=== PATIENT | male | born 1950 ===

== ENCOUNTER 2021-03-27 12:40 | Inpatient (IN) | payer MEDICARE, SELFPAY ==
[2021-03-27] VITALS (19 sets, daily range): BP systolic 139–212; BP diastolic 69–93; PULSE 60–94; RESP 15–23; TEMP 36.2–37.3; O2SAT 92–99; BMI 30.8
--- NOTE | 2021-03-27 12:41 | DI.RAD.S_ITS ---
P in ROCEDURE: XR ANKLE LT MIN 3V INDICATIONS: ankle fracture TECHNIQUE: 3 views of the ankle were acquired. COMPARISON: [facility] [place], CR, XR ANKLE 3+ VIEWS BILATERAL, 12/25/2018, 10:42. FINDINGS: Bones: There is a moderately displaced fracture seen involving the distal fibula, which is seen at and below the level of the syndesmosis. There is lateral subluxation of the talus in relation to the distal tibia. No definite medial malleolar fracture is seen. No definite posterior malleolar fracture can be seen. The overlying casting material limits evaluation of fine detail. Age-appropriate bony degenerative changes are seen. Soft tissues: No tibiotalar joint effusion. Achilles tendon appears normal. IMPRESSION: Moderately displaced distal fibular fracture, with lateral subluxation of the talus in relation to the distal tibia. If it would be helpful for clinical management decision making, please consider a dedicated ankle CT for further evaluation. Dictated by: Johan Barraza M.D. on 03/27/2021 at 12:39 Approved by: Johan Barraza M.D. on 03/27/2021 at 12:40
--- NOTE | 2021-03-27 12:47 | ED_ITS ---
HPI - Fall General Chief Complaint: Fall Stated Complaint: Fall last night,fracture left leg,from [facility] Time Seen by Provider: 03/27/21 12:42 Source: patient, family and EMS Mode of arrival: EMS History of Present Illness HPI Narrative: Patient transferred here from Monday. Sustained a left ankle injury fracture dislocation yesterday. Treated in their emergency department with reduction of the ankle. Is in a splint at this time. Patient has had prophylaxis medications including Ativan for preventing alcohol withdrawal. Patient denies any hallucinations seizures altered mental status. And no ports from Dr. Lagunas who saw patient in the department yesterday. I spoke to him by phone. Dr. [facility] was contacted last night. She wanted patient brought through emergency department 1st. Patient states he tripped off a step yesterday at home. Denies any head injury or any other injuries. Labs and COVID swab completed last night. MD complaint: fall Related Data Home Medications Medication Instructions Recorded Confirmed losartan 50 mg PO QDAY #0 02/16/17 03/28/21 metoprolol succinate 50 mg PO QDAY #0 02/16/17 03/28/21 omeprazole 40 mg PO QDAY #0 02/16/17 03/28/21 pravastatin 10 mg PO HS #0 02/16/17 03/28/21 cholecalciferol (vitamin D3) PO 12/24/18 05/07/20 Resprioncs Dreamstation CPAP #1 ea 03/28/19 03/28/21 lorazepam 0.5 mg PO TID PRN 03/28/21 03/28/21 Allergies Allergy/AdvReac Type Severity Reaction Status Date / Time No Known Drug Allergies Allergy Verified 03/27/21 12:42 Review of Systems Review of Systems Narrative: GENERAL: Denies chills, fatigue, malaise, fever, sweats. HEENT: Denies sinus pain, ear pain, sore throat RESPIRATORY: Denies dyspnea, cough CARDIOVASCULAR: Denies chest pain, palpitations GASTROINTESTINAL: Denies nausea, vomiting, abdominal pain : Denies dysuria, frequency, hematuria MUSCULOSKELETAL: Complains muscle or bony pain SKIN: Denies rash, skin lesions NEUROLOGIC: Denies weakness, numbness ROS Unobtainable: All systems reviewed & are unremarkable except as noted in HPI and below Patient History Medical History Alcohol abuse Anxiety associated with depression Aspiration pneumonia Depression Excessive daytime sleepiness GERD (gastroesophageal reflux disease) Hyperlipidemia Hypertension Insomnia Obesity (BMI 30-39.9) Obstructive sleep apnea of adult Snoring Traumatic head injury less than 3 months ago Surgical History (Updated 03/28/21 @ 04:15 by KADE VenturaELLEN) History of open reduction and internal fixation (ORIF) procedure Family History (Updated 03/28/21 @ 04:16 by KADE VenturaELLEN) Father Heart attack Mother Diabetes mellitus Alzheimer's dementia Brother Heart disease Social History marital status: details: to [place], lives in [place] household members: spouse lives independently: Yes caregiver/support person: Yes (son Gurjit here from [place] for support) housing: house Smoking Status: Former smoker alcohol intake: current substance use type: does not use Smoking Status: Former smoker alcohol intake frequency: 3 or more drinks per day Alcohol type: wine Substance Use Type: does not use Exam Narrative Exam Narrative: GENERAL: in no distress, not toxic not dyspneic HEAD: Normocephalic. EYES: Pupils equal round No scleral icterus. No injection no discharge ENT: Mucous membranes moist. NECK: Trachea midline. CARDIOVASCULAR: Regular rate and rhythm without murmurs RESPIRATORY: Clear to auscultation. Breath sounds equal bilaterally. No wheezes, rales, or rhonchi. GASTROINTESTINAL: Abdomen soft, non-tender EXTREMITIES: Patient left lower extremity in Orthoglass splint. Foot warm soft and pink. Wiggles toes. Light touch intact to toes. BACK: No flank tenderness. NEURO: AOx4. SKIN: Warm and dry PSYCH: Not anxious, is cooperative Initial Vital Signs Initial Vital Signs: Vital Signs Temperature 97.9 F 03/27/21 12:40 Pulse Rate 68 03/27/21 12:40 Respiratory Rate 15 03/27/21 12:40 Blood Pressure 212/93 H 03/27/21 12:40 Pulse Oximetry 94 03/27/21 12:40 Course Course Course Narrative: No new issues during course of stay Decision to Admit Date: 03/27/21 Decision to Admit time: 14:04 Orders Ordered: Acetaminophen (Acetaminophen 325 Mg Tablet) 650 mg PO TID [facility] Last Admin: 03/28/21 08:09 Dose: 650 mg Documented by: Admin: 03/27/21 21:56 Dose: 650 mg Documented by: RONAL Al Hydrox/Mg Hydrox/Simethicone (Mag Hydrox/Alum/Simeth 30 Ml Udc) 30 ml PO QID PRN PRN Reason: Dyspepsia Aspirin (Aspirin Ec 81 Mg Tablet) 324 mg PO DAILY [facility] Last Admin: 03/28/21 08:09 Dose: 324 mg Documented by: SVEN Citalopram Hydrobromide (Citalopram 10 Mg Tablet) 40 mg PO DAILY [facility] Last Admin: 03/28/21 08:09 Dose: 40 mg Documented by: SVEN Docusate Sodium (Docusate 100 Mg Capsule) 100 mg PO BID [facility] Last Admin: 03/28/21 08:08 Dose: 100 mg Documented by: Admin: 03/27/21 21:56 Dose: 100 mg Documented by: RONAL Folic Acid (Folic Acid 1 Mg Tablet) 1 mg PO DAILY [facility] Last Admin: 03/28/21 08:08 Dose: 1 mg Documented by: SVEN Hydromorphone HCl (Hydromorphone 0.5 Mg Inj) 0.2 mg IV Q1H PRN PRN Reason: Pain, Severe (7-10) Last Admin: 03/27/21 22:43 Dose: 0.2 mg Documented by: RONAL Lactated Ringer's (Lactated Ringers) 1,000 mls @ 125 mls/hr IV CONT [facility] Last Admin: 03/28/21 04:01 Dose: 125 mls/hr Documented by: Infusion: 03/28/21 03:39 Dose: 125 mls/hr Documented by: Admin: 03/27/21 19:39 Dose: 125 mls/hr Documented by: RONAL Lorazepam (Lorazepam 0.5 Mg Tablet) 0.5 mg PO Q6HR PRN PRN Reason: Anxiety Last Admin: 03/27/21 22:43 Dose: 0.5 mg Documented by: RONAL Losartan Potassium (Losartan 50 Mg Tablet) 100 mg PO DAILY [facility] Last Admin: 03/28/21 08:08 Dose: 100 mg Documented by: SVEN Metoprolol Succinate (Metoprolol Er 50 Mg Tablet) 50 mg PO DAILY [facility] Last Admin: 03/28/21 08:08 Dose: 50 mg Documented by: SVEN Multivitamins (Multivitamin 1 Tablet) 1 tab PO DAILY [facility] Last Admin: 03/28/21 08:08 Dose: 1 tab Documented by: SVEN Naloxone HCl (Naloxone 0.4 Mg/Ml Vial) 0.2 mg IV Q2MIN PRN PRN Reason: Opiate Reversal Ondansetron HCl (Ondansetron 4 Mg Odt) 4 mg PO Q4HR PRN PRN Reason: Nausea And Vomiting Ondansetron HCl (Ondansetron 4 Mg/2 Ml Inj) 4 mg IV Q4HR PRN PRN Reason: Nausea And Vomiting Oxycodone HCl (Oxycodone Ir 5 Mg Tablet) 5 mg PO Q3HR PRN PRN Reason: Pain, Moderate (4-6) Last Admin: 03/27/21 21:57 Dose: 5 mg Documented by: RONAL Oxycodone HCl (Oxycodone Ir 10 Mg Tablet) 10 mg PO Q3HR PRN PRN Reason: Pain, Severe (7-10) Last Admin: 03/28/21 07:00 Dose: 10 mg Documented by: Admin: 03/28/21 04:01 Dose: 10 mg Documented by: Admin: 03/28/21 01:01 Dose: 10 mg Documented by: DAVY Pantoprazole Sodium (Pantoprazole Dr 40 Mg Tablet) 40 mg PO DAILY [facility] Last Admin: 03/28/21 08:08 Dose: 40 mg Documented by: SVEN Tamsulosin HCl (Tamsulosin 0.4 Mg Capsule) 0.4 mg PO DAILY [facility] Last Admin: 03/28/21 08:08 Dose: 0.4 mg Documented by: SVEN Thiamine HCl (Thiamine 100 Mg Tablet) 100 mg PO DAILY [facility] Stop: 03/31/21 09:01 Last Admin: 03/28/21 08:08 Dose: 100 mg Documented by: SVEN Discontinued Medications Bupivacaine HCl/Epinephrine Bitart (Bupivacaine 0.5% W/ Epi (Pf) 30 Ml Vial) 30 ml INJ NOW ONE Stop: 03/27/21 16:47 Last Admin: 03/27/21 16:46 Dose: 30 ml Documented by: ANTIONE Cefazolin Sodium (Cefazolin 1 Gm Vial) 2 gm IV NOW ONE Stop: 03/27/21 15:57 Last Admin: 03/27/21 16:45 Dose: 2 gm Documented by: KECIA Cefazolin Sodium (Cefazolin 1 Gm Vial) 2 gm IV Q8H AJITH Stop: 03/28/21 08:01 Last Admin: 03/28/21 08:09 Dose: 2 gm Documented by: Admin: 03/28/21 00:35 Dose: 2 gm Documented by: DAVY Hydromorphone HCl (Hydromorphone 1 Mg Inj) 1 mg IV NOW ONE Stop: 03/27/21 14:44 Last Admin: 03/27/21 14:50 Dose: 1 mg Documented by: NATALIA Hydromorphone HCl (Hydromorphone 2 Mg Inj) 0 mg IV Q5MIN PRN PRN Reason: Pain, Moderate (4-6) Lactated Ringer's (Lactated Ringers) 1,000 mls @ 42 mls/hr IV CONT AJITH Last Infusion: 03/27/21 18:29 Dose: 0 mls/hr Documented by: Admin: 03/27/21 16:00 Dose: 42 mls/hr Documented by: DELONTE Oxycodone/Acetaminophen (Oxycodone/Acetaminophen 5/325 Tablet) 1 tab PO PACUNOW PRN PRN Reason: Mild or Moderate Pain Reevaluation(s) Reevaluation #1: No new issues. Reviewed with patient results. He understands being admitted in surgery today Time: 14:04 Consultations Consultation #1: Spoke with Dr. [facility]. Will admit and take to surgery today. Please have hospitalist as consult Time: 14:04 Consultation #2: Spoke with hospitalist, Dr. Vasquez. Will follow up as consult Time: 14:11 Vital Signs Vital signs: Vital Signs - 8 hr 03/27/21 12:40 Temperature 97.9 F Pulse Rate 68 Respiratory Rate 15 Blood Pressure 212/93 H Pulse Oximetry 94 MDM - Fall Differential Diagnosis Differential diagnosis: Likely other (Left ankle fracture/dislocation) Medical Records Attestation: I reviewed the patient's medical records. Lab Data Attestation: I reviewed the patient's lab results. Result diagrams: 03/28/21 05:00 03/28/21 05:00 Imaging Data Extremity x-ray #1: Radiologist's Impression: [address] [id number] ReportSigned Patient: Lauro Flores BMR#: [id number]: 1950Acct:[id number]/Sex: 70 / MDate of Service: 03/27/21Loc: EDAccession Number: [id number] Procedure: XR ankle LT min 3V Ordering Provider: Sherman Bonilla MD P in ROCEDURE: XR ANKLE LT MIN 3V INDICATIONS: ankle fracture TECHNIQUE: 3 views of the ankle were acquired. COMPARISON: [facility] [place], CR, XR ANKLE 3+ VIEWS BILATERAL, 12/25/2018, 10:42. FINDINGS: Bones: There is a moderately displaced fracture seen involving the distal fibula, which is seen at and below the level of the syndesmosis. There is lateral subluxation of the talus in relation to the distal tibia. No definite medial malleolar fracture is seen. No definite posterior malleolar fracture can be seen. The overlying casting material limits evaluation of fine detail. Age-appropriate bony degenerative changes are seen. Soft tissues: No tibiotalar joint effusion. Achilles tendon appears normal. IMPRESSION: Moderately displaced distal fibular fracture, with lateral subluxation of the talus in relation to the distal tibia. If it would be helpful for clinical management decision making, please consider a dedicated ankle CT for further evaluation. Dictated by: Johan Barraza M.D. on 03/27/2021 at 12:39 Approved by: Johan Barraza M.D. on 03/27/2021 at 12:40 ECG Data Attestation: I personally reviewed and interpreted this ECG as follows: Interpretation: Normal sinus rhythm rate [address] elevation or depression MDM Narrative Medical decision making narrative: Appropriate for continued admission for balance of care for limb injury. Discharge Plan Departure Patient Disposition: Admitted As Inpatient Clinical Impression: Closed fracture of left ankle Qualifiers: Encounter type: initial encounter Qualified Code(s): S82.892A - Other fracture of left lower leg, initial encounter for closed fracture Admit Date/Time: 03/27/21 15:11 Admit Provider: Jessica Marrero
[2021-03-27] MEDS: HYDROMORPHONE 1 MG INJ IV (14:50)
--- NOTE | 2021-03-27 15:00 | PC.NURSE ---
report given to neonatal icu coordinator 1313 pt to go to OR then to ICU
--- NOTE | 2021-03-27 15:40 | P.HP_ITS ---
History of Present Illness History of Present Illness Date Patient Seen: 03/27/21 Time Patient Seen: 15:40 Date of Onset of Symptoms: 03/26/21 Chief complaint: Fall last night,fracture left leg,from [facility] Narrative: Kareem is a 70-year-old male with a history of sleep apnea, neuropathy, alcohol use, kidney disease. He fell down some steps on his porch at home in [place] yesterday and sustained a fracture dislocation of his left ankle. He was seen at the emergency room in [place] where reduction was performed. He has an unstable ankle fracture dislocation was indicated for surgery. He presented to [facility] Emergency Room on post injury day 1. He endorses pain aching in his left ankle. Denies diabetes. He does have a CPAP for sleep apnea. Denies any medication allergies. States he previously took gabapentin for his neuropathy but stopped taking it because it did not help and made him sleepy. Get a lab workup in [place] that demonstrated grossly normal CBC renal liver function and coags. EKG was also done. Troponins negative. History of heavy alcohol use approximately 1 large bottle of wine daily--which he equivalents to 5 or 6 large glasses Patient History Medical History Alcohol abuse Anxiety associated with depression Aspiration pneumonia Depression Excessive daytime sleepiness GERD (gastroesophageal reflux disease) Hyperlipidemia Hypertension Insomnia Obesity (BMI 30-39.9) Obstructive sleep apnea of adult Snoring Traumatic head injury less than 3 months ago Family & Social History Social History: household members spouse lives independently Yes caregiver/support person Yes: son Gurjit here from [place] for support Safety & Behavioral: Feels Safe in Current Yes Environment Been Physically Hurt or No Threatened By a Person Tobacco & Substance use: Smoking Status Former smoker alcohol intake current alcohol intake frequency 3 or more drinks per day Substance Use Type does not use Meds Home Medications and Allergies Home Medications Medication Instructions Recorded Confirmed Type citalopram 40 mg PO QDAY #0 02/16/17 05/07/20 History gabapentin [Neurontin] 300 mg PO TID #0 02/16/17 05/07/20 History losartan 50 mg PO QDAY #0 02/16/17 05/07/20 History metoprolol succinate 50 mg PO QDAY #0 02/16/17 05/07/20 History omeprazole 40 mg PO QDAY #0 02/16/17 05/07/20 History pravastatin 10 mg PO HS #0 02/16/17 01/08/19 History cholecalciferol (vitamin D3) PO 12/24/18 05/07/20 History melatonin 3 mg tablet 9 mg PO BEDTIME PRN tab 12/24/18 01/08/19 History naltrexone 50 mg tablet 50 mg PO DAILY 12/24/18 01/08/19 History Resprioncs Dreamstation CPAP #1 ea 03/28/19 History Allergies Allergy/AdvReac Type Severity Reaction Status Date / Time No Known Drug Allergies Allergy Verified 03/27/21 12:42 Review of Systems Review of Systems Narrative: No complaints. Does endorse neuropathy. Endorses history of heavy alcohol use. History of sleep apnea. No chest pain no nausea no vomiting. ROS: Yes All systems reviewed with the patient and are negative except as otherwise documented Constitutional Constitutional: Reports system reviewed and no additional complaints, except as documented Exam Vital Signs (past 8 hours): - 03/27/21 12:40 03/27/21 13:08 03/27/21 13:31 Temperature 97.9 F Pulse Rate 68 64 Respiratory Rate 15 Blood Pressure 212/93 H Pulse Oximetry 94 96 99 03/27/21 14:00 03/27/21 14:10 03/27/21 14:47 Temperature Pulse Rate 61 94 H 72 Respiratory Rate 18 Blood Pressure 180/90 H Pulse Oximetry 94 96 94 03/27/21 15:01 Temperature Pulse Rate 70 Respiratory Rate 18 Blood Pressure 178/78 H Pulse Oximetry 97 Oxygen Delivery Method Room Air Narrative Exam Narrative: Alert oriented no acute distress HEENT exam normocephalic atraumatic Respiratory exam unlabored on room air. Lungs clear to auscultation bilaterally Heart regular rate and rhythm Abdomen soft and nontender Musculoskeletal exam upper extremities normal range of motion no pain. Right lower extremity normal alignment and range of motion no pain. Left lower extremity external rotation and lower extremity splint. Wiggles toes. Moderate neuropathy. Calf is soft. Nontender knee. Swelling and tenderness left ankle. Motor exam limited secondary to known acute injury. Brisk capillary refill. Palpable dorsalis pedis pulse Objective Imaging X-ray ankle left: My impression: Left ankle bimalleolar equivalent fracture- Lateral malleolus fracture with deltoid rupture and lateral subluxation of the talus Labs Labs: Labs from Monday were reviewed and were within normal limits. Negative COVID test. Assessment & Plan Assessment and plan (1) Closed fracture of left ankle: Qualifiers: Encounter type: initial encounter Qualified Code(s): S82.892A - Other fracture of left lower leg, initial encounter for closed fracture Status: Acute (2) Obesity (BMI 30-39.9): Status: Chronic (3) Alcohol abuse: Status: Chronic (4) Obstructive sleep apnea of adult: Status: Chronic Assessment & Plan narrative: 70-year-old male with a history of sleep apnea and had heavy alcohol use presents with a unstable left ankle fracture. Bimalleolar equivalent injury with persistent lateral subluxation of the talus. He has been indicated for operative intervention to reduce the mortise line is fractures reduce the risks of malunion nonunion at dysfunction and posttraumatic arthritis. Surgery risks were discussed with the patient and with the patient's on the telephone. They elected to proceed. Plan he will be admitted to the hospital after the surgery work with physical therapy and will have a social work on consult. Due to his living situation may require a short- term care versus assistance at home. Left Ancef as a preoperative antibiotic. Will be on CIWA protocol postoperatively. Will have a internal medicine consult. Will do aspirin 325 mg daily for postoperative DVT prophylaxis starting on postop day 1. First 2 weeks after surgery will be strict elevation. Plan for Approximately 6 weeks non-weight bearing COVID-19 COVID-19 status: Negative Time Spent With Patient Time with patient: 15-24 minutes Quality VTE Deep Vein Thrombosis/Pulmonary Embolism Present on Admission: No
--- NOTE | 2021-03-27 15:55 | PM.PREOP ---
Pre-operative Note COVID-19 COVID-19 status: Negative Interval Note History & Physical reviewed/Exam performed by Physician: Yes Changes to H&P: No
[2021-03-27] MEDS: LACTATED RINGERS 1,000 ML 42 ML IV (16:00)
--- NOTE | 2021-03-27 16:17 | SUR.HOLD ---
1530 late entry: Received patient from Emergency room in stable condition. GCS 15; patient here for repair of left ankle. Patient rates pain to ankle 4/10 but tolerable. Patient denies any SOB or nausea at this time. Anesthesia consent and surgical consents signed. All risks and benefits of surgery discussed with patient. Anesthesia preparing for nerve block.
--- NOTE | 2021-03-27 16:20 | SUR.HOLD ---
Block start time [1550] . Monitoring initiated and maintained throughout procedure. Oxygen and medications given per anesthesiologist instructions. Patient remained stable throughout procedure, no adverse reactions noted. Block end time [1605]. No sedation or pain meds given prior to nerve block placement via ultrasound guidance. Patient tolerated well.
--- NOTE | 2021-03-27 16:35 | PM.PROC.1 ---
Procedures Date/Time Date of procedure: 03/27/21 Time of procedure: 15:50 Nerve Block Time out performed: Yes Local anesthetic used: other (5mL 2% Lidocaine, 15mL 0.5% Ropivacaine) Location of anesthetic used: lateral popliteal Amount of anesthesia used (mL): 20 Nerve blocks: other (sciatic nerve) Procedure successful: Yes Patient tolerated procedure: well Complications: none Additional comments: LEFT Ultrasound guided lateral popliteal sciatic nerve block for post operative pain management, as discussed with surgeon. Risks, benefits discussed with patient and spouse. Consent verified. Site marked by surgeon. Time out performed. Standard ASA monitors applied, NC O2. Pt supine. Chloroprep. Sciatic nerve identified proximal to popliteal fossa, at bifurcation. Lidocaine local skin wheal. 100mm x 21g Pajunk needle advanced with in-plane US guidance to nerve. Negative aspiration. 5mL 2% lidocaine and 15mL 0.5% ropivacaine injected with intermittent negative aspiration. Good LA spread noted on US. No pain, no paresthesias. VSS. Tolerated well.
--- NOTE | 2021-03-27 16:37 | SUR.OPER ---
Supine on padded OR bed, head on pillow, arms secured on padded arm boards at <90 degrees abduction, legs uncrossed, bump under left hip, safety belt at pelvis, tape over blanket over right lower leg.
[2021-03-27] MEDS: CEFAZOLIN 1 GM VIAL 2 GM IV (16:45)
[2021-03-27] MEDS: BUPIVACAINE 0.5% W/ EPI (PF) 30 ML VIAL INJ (16:46)
--- NOTE | 2021-03-27 18:36 | SUR.PHASEI ---
Patient drowsy but awake, denies pain or nausea; taking ice chips without difficulty.
--- NOTE | 2021-03-27 18:40 | SUR.PHASEI ---
Attempted to call report to inpatient nurse. Nurse unavailable at this time. Patient remains stable and denies pain at this time.
--- NOTE | 2021-03-27 18:53 | P.OP_ITS ---
Operative Date/Time/Diagnoses Date of procedure: 03/27/21 Time of procedure: 16:15 Pre-op diagnosis: Left ankle fracture dislocation, distal fibula fracture, deltoid rupture. History of heavy alcohol use. Sleep apnea uses CPAP. Hypertension. Kidney disease. BMI 30.8 Post-op diagnosis: same Procedure & Clinicians Procedure: 1. Open reduction internal fixation lateral malleolus 71486 2. Repair left deltoid ligament CPT code 59607 Same procedure as scheduled: Yes Indications: Patient is a 70-year-old male with a history of alcohol use hypertension and sleep apnea who fell stepping off his deck approximately 24 hours ago in [facility]. He was seen at the ER on the [place] where was found to have a left ankle fracture dislocation. He had a reduction procedure in the ER at [place]. He had residual lateral talar subluxation. He was indicated for surgical treatment for his unstable ankle fracture. He was transferred to [facility] for surgical services. We discussed ankle fracture fixation possible syndesmotic fixation and possible deltoid ligament repair depending on intraoperative findings. Patient does have underlying neuropathy. He does not have diabetes. 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 The risks and benefits of the procedure have been discussed with the patient even opportunity to ask questions. This was also discussed with the patient's over the telephone. The risks of surgery include but are not limited to infection, malunion, nonunion, persistence of pain, damage to nerves and blood vessels, posttraumatic arthritis, DVT, PE, cardiopulmonary complications and . The patient expressed a thorough understanding of the risks and benefits of surgery and has elected to proceed. Consent was signed. Surgeon: Jessica Marrero Click Yes if Unassisted: Yes Anesthesia Type: General, Peripheral nerve block and Local Operative Notes Findings: There is an unstable oblique lateral malleolus fracture encountered. Syndesmosis was intact and attached to the proximal fragment. Proximal distal fragments were reduced restoring length and alignment and stabilized with 2 x 2.7 lag screws in the long thin fracture and neutralized with a 7 hole 1/3 tubular locking plate from the [employer] set. Ankle stability was then tested. The syndesmosis did not widen but there was a slight valgus gapping medially. Based on the preoperative x-rays and large medial dye stasis it was expected that there was a complete deltoid rupture. Based on the slight valgus opening and the patient underlying flatfoot he was indicated for deltoid repair. Medial incision was opened in the deltoid inspected there was a complete rupture off the medial malleolus with a very small bony avulsion and this was repaired using 2-0 FiberWire through drill holes in the medial malleolus restoring congruity. Closure Type: primary Specimen(s): none sent Prosthetic devices, grafts, tissues, transplants, or devices: [employer]hew 7 hole 1/3 tubular locking plate with 2 cortical screws and 1 locking screw proximally. An locking screws distally to decrease prominence and she has stable fixation in the soft distal bone. Two 2.7 lag screws were utilized. The deltoid ligament was repaired with 2-0 FiberWire through drill holes Estimated Blood Loss (mL): 20 Blood products transfused: none Tourniquet time (min): 84 Procedure in detail: Patient was seen in the preoperative area the site of surgery was marked informed consent confirmed. He was brought back to the operating room by the anesthesia team positioned supine on the operative table. General anesthetic was administered. A regional block was placed for postoperative pain control by the anesthesia team. An SCD was placed on the contralateral lower extremity. Patient was positioned supine with a ipsilateral thigh bump. The surgical leg was prepped and draped in the standard sterile fashion. A formal time-out procedure was completed confirming the patient's side and site of surgery administration of appropriate preoperative antibiotics. All were in agreement. An Esmarch bandage utilized to exsanguinate the limb and the tourniquet was raised on the thigh to 250 mmHg. Lateral incision was made over the fibula along the posterior border. Dissection was carried through the skin subcutaneous tissue to the level of the fibula. The fibula was exposed exposing the fracture which was opened and cleaned of debris and irrigated. Flexure was a long oblique fracture with thin fragments. The syndesmosis was attached to this on the proximal side. Fracture was then reduced using the reduction clamps restoring length rotation and alignment. This was provisionally pinned and then stabilized with 2 2.7 lag screws from the Pa[employer]hew set next the fracture was neutralized using a 7 hole lateral 1/3 tubular locking plate from the [employer]hew set. This was placed down to bone using the olive wires then locking screws were placed dista lly in the soft a distal fibula bone and 2 cortical screws and 1 locking screw were placed proximally. To middle screw holes were left open avoiding the lag screws and providing availability for syndesmotic fixation if necessary. Once the stabilization was completed the ankle was taken under a fluoroscopic imaging in AP mortise and lateral planes. The reduction of the fibula was excellent. There was no opening of the syndesmosis with external rotation stress. Foot with valgus stress there was felt to be slight valgus gapping medially. Based on the preoperative images there was high suspicion for complete deltoid rupture. Evaluating the patient's pes planovalgus underlying foot condition, this is expected to place additional stress on the deltoid and is felt that the patient would benefit from a formal deltoid repair to restore length and prevent valgus tilt. Deltoid repair. A medial incision was taken over the medial malleolus and deltoid ligament. The subcutaneous tissues were dissected. Care was taken to protect the saphenous vein and nerve.. A complete rupture of the deltoid ligament was encountered with avulsion off the distal medial malleolus and a medial malleolus bare area. There was a small bone fragment within the avulsed deltoid. This also created an arthrotomy into the joint which was irrigated and inspected. Mild degenerative changes no significant new lesions. Small bony fragment was too small to fix this was debrided from the deltoid and then the deltoid was repaired through bone tunnels in the medial malleolus. These were created using the 2-0 drill and the 2-0 FiberWire was used to bring the deltoid up to the medial malleolus through the bone tunnels and tied over the medial malleolus. This restored continuity of the deltoid. The ankle was then ranged again under the mini C-arm in AP lateral and mortise images demonstrating a symmetric mortise. Tourniquet was released and hemostasis achieved. At this point the wounds were irrigated and closed with 2-0 Vicryl deep 4-0 Monocryl subcutaneous and 3-0 nylon in the skin. Local anesthetic was injected. Sterile dressings were placed and a sterile well-padded splint including bulky Talley cotton. The patient was woken from anesthesia and taken to recovery room in good condition. There no immediate complications from this procedure. All counts were correct. Complications: none Post-operative Condition: stable Disposition: PACU Plan for aftercare: Patient will be nonweightbearing on the left lower extremity. May touchdown for balance only. Due to the situation at home with stairs and several large very active dog's the patient and his do have some interest in short-term placement if available. They will work with the social workers and physical therapists. He will be admitted overnight indicated for ciwa protocol pain control and postsurgical monitoring. Once he is stable and discharge plan and placed will be discharged from the hospital back to the [facility]. He will use aspirin 325 mg daily. For DVT prophylaxis starting postop day 1. he will have a hospitalist consult regarding his medical comorbidities.
[2021-03-27] MEDS: LACTATED RINGERS 1,000 ML 125 ML IV (19:39)
[2021-03-27] MEDS: DOCUSATE 100 MG CAPSULE PO (21:56)
[2021-03-27] MEDS: ACETAMINOPHEN 325 MG TABLET 650 MG PO (21:56)
[2021-03-27] MEDS: OXYCODONE IR 5 MG TABLET PO (21:57)
[2021-03-27] MEDS: HYDROMORPHONE 0.5 MG INJ 0.2 MG IV (22:43)
[2021-03-27] MEDS: LORazepam 0.5 MG TABLET PO (22:43)
[2021-03-28] MEDS: CEFAZOLIN 1 GM VIAL 2 GM IV ×2 (00:35→08:09)
[2021-03-28] MEDS: OXYCODONE IR 10 MG TABLET PO ×7 (01:01→23:45)
[2021-03-28 03:00] VITALS: BP 165/76; PULSE 70; RESP 23; TEMP 36.6; O2SAT 95
--- NOTE | 2021-03-28 03:11 | PM.CN ---
History of Present Illness Consult details Date Patient Seen: 03/27/21 Time Patient Seen: 22:11 Chief complaint: Fall last night,fracture left leg,from [facility] Reason for consult: Hypertension, depression, alcohol withdrawal, sleep apnea and obesity Requesting provider: Jessica Marrero Narrative: Patient is a 70-year-old male with a history of alcohol use, hypertension, depression, obesity, neuropathy, and sleep apnea who fell stepping [place] his deck [facility] ago [facility] He was seen at the ER on the [place] where was found to have a left ankle fracture dislocation. He had a reduction procedure in the ER at [place]. He was transferred to [facility] for surgical treatment for his unstable ankle fracture. Patient has been admitted to the floor following surgery by Dr. Marrero for Left open reduction internal fixation of the lateral malleolus and repair of left deltoid ligament. We have been consulted to address patient's alcohol withdrawal, hypertension, depression, neuropathy, sleep apnea and obesity. Meds Home Medications and Allergies Home Medications Medication Instructions Recorded Confirmed Type losartan 50 mg PO QDAY #0 02/16/17 05/07/20 History metoprolol succinate 50 mg PO QDAY #0 02/16/17 05/07/20 History omeprazole 40 mg PO QDAY #0 02/16/17 05/07/20 History pravastatin 10 mg PO HS #0 02/16/17 01/08/19 History cholecalciferol (vitamin D3) PO 12/24/18 05/07/20 History Resprioncs Dreamstation CPAP #1 ea 03/28/19 History lorazepam 0.5 mg PO TID PRN 03/28/21 03/28/21 History Allergies Allergy/AdvReac Type Severity Reaction Status Date / Time No Known Drug Allergies Allergy Verified 03/27/21 12:42 Review of Systems Review of Systems ROS: Yes All systems reviewed with the patient and are negative except as otherwise documented Musculoskeletal Comments: Pain in left lower leg Exam Vital Signs (past 8 hours): - 03/27/21 19:30 03/27/21 20:00 03/27/21 21:00 Temperature 97.1 F L 97.2 F L 97.7 F Pulse Rate 60 72 68 Respiratory Rate 18 17 20 Blood Pressure 152/74 H 159/76 H 156/72 H Pulse Oximetry 96 93 96 03/27/21 22:00 03/27/21 22:37 03/27/21 23:46 Temperature 97.8 F 98.1 F Pulse Rate 65 62 Respiratory Rate 15 20 Blood Pressure 190/80 H 153/69 H 151/70 H Pulse Oximetry 94 92 Oxygen Delivery Method Room Air Oxygen Flow Rate 0 Narrative Exam Narrative: General: Patient is a well-developed, well-nourished in no distress at this time. HEENT: Normocephalic, atraumatic, extraocular muscles intact, oral pharynx is clear and mucous membranes are moist. Neck is supple and symmetric, trachea is midline, no adenopathy, no thyroid enlargement, nontender, no masses palpated. Negative for JVD Chest: Normal AP diameter and contour without kyphoscoliosis, no nasal flaring, retractions, or tachypneic labored Lungs: Auscultation of all lung gutierrez are clear without adventitious sounds, wheezes, rhonchi, or rales. Cardio: S1 & S2 with regular rate and rhythm without murmur, rubs, or gallops, no carotid bruit, no cardiac pulsations present. Abdomen: Soft nontender, negative for organomegaly, or masses. Bowel sounds are present in all 4 quadrants without guarding or rebound, no CVA tenderness. Musculoskeletal: Left lower leg is casted & bandaged, intact radial and pedal pulses are normal. Skin: Warm dry and intact without rashes, ulcerations or petechiae. Neuro: Alert and orientated x3, sensation to touch intact, no gross deficits noted of cranial nerves. Psych: Patient has a well-kept appearance, appropriate affect, mental status attitude thought context and judgment are appropriate for age. Assessment & Plan Assessment & Plan narrative: Patient is medically stable and recovering well from his surgery. He demonstrates no alcohol withdrawal symptoms and blood pressure control has improved. It is been a pleasure to consult for Dr. Vincent, the patient is stable and requires no further follow-up from the hospitalist service. Please feel free to contact us for any further concerns. 1. Alcohol abuse/withdrawal, chronic, unknown if present on admission -patient admitted under [facility] protocols --patient to be monitored on tele medicine, vital signs q.4 hours, intake and output monitored Q shift. -- A.m. labs CBC, CMP, Mag, PT and PTT-will monitor electrolytes magnesium and phosphorus -patient given thiamin and folic acid -monitor patient for complications of fluid overload variceal hemorrhage, ascites, spontaneous bacterial peritonitis, hepatocellular carcinoma, hepatic renal syndrome, or hepatopulmonary syndrome, septic shock -patient is high risk of falls. Fall & seizure precautions in place -patient counseled on stopping drinking and seeking follow-up outpatient mental health and rehabilitative services 2. Essential hypertension, acute on chronic, present on admission -stabilize patients b/p -continue patient's losartan 50 mg q.day and metoprolol 50 mg q.day. 3. Obstructive sleep apnea, chronic, not present on admission -respiratory consult and CPAP provided -maintain O2 saturation >90% -monitor patient for respiratory distress or increased work of breathing. 4. Depression, acute on chronic, unknown of present on admission -continue patient's citalopram 40 mg daily. 5. Neuropathy, acute on chronic, unknown if present on admission -continue patient's gabapentin 300 mg t.i.d. 6. Obesity as evidence by BMI of 30.8, acute on chronic, present on admission -consideration will be given to dietary counseling Code status: Full code Surrogate decision maker: Spouse Florence Flores LUKE PCR: Negative
[2021-03-28] MEDS: LACTATED RINGERS 1,000 ML 125 ML IV (04:01)
[2021-03-28 05:17] LABS: Add Manual Diff / Slide Review NO; Basophils Absolute Auto 0 /uL (0-100); Basophils Percent Auto 0.4 % (0-2); Eosinophils Absolute Auto 200 /uL (0-450); Eosinophils Percent Auto 2.1 % (2-4); Lymphocytes Absolute Auto 1100 /uL (1100-4500); Lymphocytes Percent Auto 12.3 % (25-40); Mean Corpuscular HGB Conc 33.4 % (30-36); Mean Corpuscular Hemoglobin 31.7 PG (26-34); Mean Corpuscular Volume 94.7 fL (80-100); Monocytes Absolute Auto 600 /uL (0-900); Monocytes Percent Auto 7.2 % (3-14); Neutrophils Absolute Auto 6900 /uL (1500-7000); Platelet Count 162 X10^3/uL (150-400); Red Blood Cell Count 3.49 X10^6/uL (4.5-5.9); Red Cell Distribution Width 16.9 % (11.6-14.8); White Blood Cell Count 8.8 X10^3/uL (4.5-11.0)
[2021-03-28 05:18] LABS: Prothrombin Time 11.6 SECONDS (10.1-12.7)
[2021-03-28 05:21] LABS: PTT Partial Thromboplastin Tim 33 SECONDS (26.4-36.2)
[2021-03-28 05:24] LABS: Magnesium 2.1 mg/dL (1.6-2.3); Phosphorous 3.9 mg/dL (2.3-3.7)
[2021-03-28 05:25] LABS: Alanine Aminotransferase 15 IU/L (<50); Albumin 3.4 g/dL (3.5-5.0); Albumin Globulin Ratio 1.2 (1.0-2.8); Alkaline Phosphatase 122 U/L (38-126); Aspartate Aminotransferase 25 IU/L (17-59); BUN Creatinine Ratio 11.5 (6-22); Blood Urea Nitrogen 13 mg/dL (9-20); Carbon Dioxide 31 mmol/L (22-32); Chloride 96 mmol/L (98-107); Estimated Glomerular Filt Rate > 60.0 mL/min (>60); Globulin 2.9 g/dL (1.7-4.1); Glucose 136 mg/dL (80-110); HEMOLYSIS < 15 (0-50); Potassium 4.5 mmol/L (3.4-5.1); Sodium 132 mmol/L (137-145); Total Protein 6.3 g/dL (6.3-8.2)
[2021-03-28 07:29] VITALS: BP 174/96; PULSE 87; RESP 20; TEMP 36.7; O2SAT 92
[2021-03-28] MEDS: METOPROLOL ER 50 MG TABLET PO (08:08)
[2021-03-28] MEDS: MULTIVITAMIN 1 TABLET 1 TAB PO (08:08)
[2021-03-28] MEDS: DOCUSATE 100 MG CAPSULE PO ×2 (08:08→20:00)
[2021-03-28] MEDS: THIAMINE 100 MG TABLET PO (08:08)
[2021-03-28] MEDS: TAMSULOSIN 0.4 MG CAPSULE PO (08:08)
[2021-03-28] MEDS: PANTOPRAZOLE DR 40 MG TABLET PO (08:08)
[2021-03-28] MEDS: LOSARTAN 50 MG TABLET 100 MG PO (08:08)
[2021-03-28] MEDS: FOLIC ACID 1 MG TABLET PO (08:08)
[2021-03-28] MEDS: ACETAMINOPHEN 325 MG TABLET 650 MG PO ×3 (08:09→20:00)
[2021-03-28] MEDS: ASPIRIN EC 81 MG TABLET 324 MG PO (08:09)
--- NOTE | 2021-03-28 09:38 | P.PN_ITS ---
Subjective Subjective Date Patient Seen: 03/28/21 Time Patient Seen: 09:38 Interval history: Postop day 1 left ankle fracture ORIF. With distal fibula ORIF and deltoid repair. Patient is lying comfortable in bed today eating breakfast. Pain is controlled. Peripheral nerve block appears to be least partially still in effect. He is being monitored on [facility] protocol for history of heavy alcohol use however demonstrating no symptoms currently. No complaints. Expresses appreciation for care Exam Vital Signs (past 8 hours): - 03/28/21 03:00 03/28/21 07:29 Temperature 97.9 F 98.1 F Pulse Rate 70 87 Respiratory Rate 23 20 Blood Pressure 165/76 H 174/96 H Pulse Oximetry 95 92 Oxygen Delivery Method Room Air Oxygen Flow Rate 0 Narrative Exam Narrative: Alert oriented male in no acute distress HEENT exam normocephalic atraumatic Respiratory unlabored on room air CV regular rate rhythm Musculoskeletal examination: Moving bilateral upper extremities full range of motion no pain Right lower extremity atraumatic grossly normal alignment demonstrates active dorsiflexion plantar flexion Left lower extremity and wound splint. Thigh soft. Motor sensory exam limited by still active peripheral nerve block does demonstrate less sensation on the left side consistent with peripheral nerve block still in effect. Brisk capillary refill. Objective Labs Result Diagrams: 03/28/21 05:00 03/28/21 05:00 Labs: Laboratory Results - last 24 hr 03/28/21 03/28/21 03/28/21 05:00 05:00 05:00 WBC 8.8 RBC 3.49 L Hgb 11.0 L Hct 33.0 L MCV 94.7 MCH 31.7 MCHC 33.4 RDW 16.9 H Plt Count 162 Neut % (Auto) 78.0 H Lymph % (Auto) 12.3 L Becker % (Auto) 7.2 Eos % (Auto) 2.1 Baso % (Auto) 0.4 Neut # (Auto) 6900 Lymph # (Auto) 1100 Becker # (Auto) 600 Eos # (Auto) 200 Baso # (Auto) 0 PT 11.6 INR 1.0 APTT 33 Sodium 132 L Potassium 4.5 Chloride 96 L Carbon Dioxide 31 BUN 13 Creatinine 1.13 Estimated GFR > 60.0 BUN/Creatinine Ratio 11.5 Glucose 136 H Calcium 8.0 L Phosphorus Magnesium Total Bilirubin 1.0 AST 25 ALT 15 Alkaline Phosphatase 122 Total Protein 6.3 Albumin 3.4 L Globulin 2.9 Albumin/Globulin Ratio 1.2 03/28/21 03/28/21 05:00 05:00 WBC RBC Hgb Hct MCV MCH MCHC RDW Plt Count Neut % (Auto) Lymph % (Auto) Becker % (Auto) Eos % (Auto) Baso % (Auto) Neut # (Auto) Lymph # (Auto) Becker # (Auto) Eos # (Auto) Baso # (Auto) PT INR APTT Sodium Potassium Chloride Carbon Dioxide BUN Creatinine Estimated GFR BUN/Creatinine Ratio Glucose Calcium Phosphorus 3.9 H Magnesium 2.1 Total Bilirubin AST ALT Alkaline Phosphatase Total Protein Albumin Globulin Albumin/Globulin Ratio [facility] Medical History Alcohol abuse Anxiety associated with depression Aspiration pneumonia Depression Excessive daytime sleepiness GERD (gastroesophageal reflux disease) Hyperlipidemia Hypertension Insomnia Obesity (BMI 30-39.9) Obstructive sleep apnea of adult Snoring Traumatic head injury less than 3 months ago Surgical History (Updated 03/28/21 @ 04:15 by FABIAN Ventura) History of open reduction and internal fixation (ORIF) procedure Family History (Updated 03/28/21 @ 04:16 by FABIAN Ventura) Father Heart attack Mother Diabetes mellitus Alzheimer's dementia Brother Heart disease Social History marital status: details: darek Cross, lives in [place] household members: spouse lives independently: Yes caregiver/support person: Yes (son Gurjit here from [place] for support) housing: house Smoking Status: Former smoker alcohol intake: current substance use type: does not use Assessment & Plan Post-op Postoperative Procedures: Procedures Operation Date: 03/27/21 16:00 Actual Procedures Side Surgeon p ORIF Ankle Fracture Jessica Marrero MD Postop day 1 status post ORIF left ankle fracture with deltoid ligament repair. Doing well woken physical therapy and social work today. Due to the home situation there was some concerned for fitness for return home we will await physical therapy evaluation for home versus snf. Will be nonweightbearing x6 weeks. May use walker, crutches or knee scooter for ambulation. First 2 weeks elevate ankle at or above heart level to aid with swelling and incision healing. He does have a history of neuropathy and some balance issues and may require assistance. Discussed that splint can be touched down to the ground for balance but no weight-bearing through the splint does have an underlying rigid flatfoot that would contribute to extra stress along the medial ankle so we discussed for him to bring all the previous orthotic bracing options that he has used in the past to his postoperative appointment with me and we will discuss these along with additional options and he does report is flatfoot has been symptomatic. Will start aspirin 325 mg for DVT prophylaxis. He will take this once daily for 6 weeks while he is nonweightbearing. Will add vitamin-D and calcium for bone health History of alcohol use. On [facility] protocol monitoring for signs of withdrawal. None currently. being comanaged by the hospitalist team appreciate their recommendations. Dispo home versus snf based on PT social work recommendations and options Currently requires continued inpatient admission for pain control and alcohol withdrawal monitoring and physical therapy/placement Quality VTE Deep Vein Thrombosis/Pulmonary Embolism Present on Admission: No
[2021-03-28] MEDS: CHOLECALCIFEROL (VITAMIN D3) 5,000 UNIT TABLET 5000 UNIT PO (10:00)
[2021-03-28] MEDS: FLUTICASONE 120 SPRAY/16 GM SPRAY.SUSP NASAL ×2 (10:00→20:00)
[2021-03-28] MEDS: CALCIUM CARBONATE 600 MG TABLET 1200 MG PO (10:00)
[2021-03-28 11:44] VITALS: BP 146/74; PULSE 85; RESP 18; TEMP 36.5; O2SAT 94
--- NOTE | 2021-03-28 12:03 | PT.IIE ---
Current Diagnoses Obesity, unspecified (03/27/21) Alcohol abuse, uncomplicated (03/27/21) Obstructive sleep apnea (adult) (pediatric) (03/27/21) Other fracture of left lower leg, initial encounter for closed fracture (03/27/21) Surgery Performed Operation Date: 03/27/21 16:00 Actual Procedures p ORIF Ankle Fracture - Jessica Marrero MD Surgical History (Last Updated 03/28/21 @ 04:15 by Natalya Gonzales [facility]) History of open reduction and internal fixation (ORIF) procedure Medical History (Last Reviewed 03/28/21 @ 03:57 [facility] Alcohol abuse Anxiety associated with depression Aspiration pneumonia Depression Excessive daytime sleepiness GERD (gastroesophageal reflux disease) Hyperlipidemia Hypertension Insomnia Obesity (BMI 30-39.9) Obstructive sleep apnea of adult Snoring Traumatic head injury less than 3 months ago Physical Therapy Inpatient Evaluation/Re-Eval M1 PT/OT-IP Prior Functional Status Start: 03/28/21 09:23 Freq: NEEDED Status: Active Protocol: Document 03/28/21 12:03 AW (Rec: 03/28/21 13:46 AW [id number]) Medical Review Prior Functional Status Medical History Reviewed Yes Communication Pt is able to make needs known Mobility and Gait Indpendent without AD and without meaningful limit. Safety is affected by chronic peripheral neuropathy affecting bilateral feet. Activities of Daily Living and IADL's Independent with all ADL and IADL's. Pt is an active tour bus driver/guide . Prior Functional Level (Other details) Pt has history of falls, some injurious, including a fall last year during which he hit his head with resultant facial and finger fractures, concussion leading to a 2-week hospital stay. Social History Household Members spouse Living Arrangements House Number of Floors (Floors) Two Floors Number of Stairs To Enter/Railing? 5 [place] with wide bilateral rails (can only use one at a time). Home Environment Standard Height Toilet,Tub/ Shower Home Equipment Straight Cane Additional Social History Comment Pt lives in [place] with his , America. They have two young, very active ramos retrievers. M2 PT-IP Current Condition Start: 03/28/21 09:23 Freq: NEEDED Status: Active Protocol: Document 03/28/21 12:03 AW (Rec: 03/28/21 13:46 AW [id number]) Physical Therapy Current Condition Current Condition Evaluation Date 03/28/21 Treatment Diagnosis L distal fibula ORIF and deltoid repair; impaired mobility and gait Onset Date 03/27/21 Weight Bearing Status Weight Bearing Status Non-Weight Bearing Allowed Weight Bearing Amount (enter % NWB LLE x 6 weeks per ortho or #) (%) M3 PT-IP Subjective Start: 03/28/21 09:23 Freq: NEEDED Status: Active Protocol: Document 03/28/21 12:03 AW (Rec: 03/28/21 13:46 AW [id number]) Subjective Physical Therapy Visit Type Type Initial Evaluation Visit Start Time 11:23 Visit Stop Time 12:03 Total Visit Minutes 40 Notes Pt's , America, joined by telephone and contributed to history. Number of SUPERVISOR INVENTORY MERCHANDISING Visits 0 Physical Therapy Visit Comments Patient Comments Pt is willing to participate with PT Therapy Pain Assessment Pain When Pain Assessed During Mobility Pain Present Pain Present Pain Reported Location Left Ankle Scale Used not quantified Pain Management Techniques Elevation,Timing of Activity with Medications M4 PT-IP Mobility and Gait Start: 03/28/21 09:23 Freq: NEEDED Status: Active Protocol: Document 03/28/21 12:03 AW (Rec: 03/28/21 13:46 AW [id number]) PT-Bed Mobility Assessment Supine to Sit Supine to Sit Minimal Assistance,1 Person Assistance Scooting Scooting to Edge of Bed Contact Guard Assistance PT-Transfer Assessment Sit to and From Stand Sit to and from Stand Maximum Assistance,1 Person Assistance,Use of Upper Extremities Equipment Transfer Assistive Device Gait Belt,Front Wheeled Walker Orthotic/Prosthetic Devices or Brace: No Transfers Transfer Destination Chair Transfer Technique Stand Step Pivot Transfer Ability Level of Assist Maximum Assistance,1 Person Assistance,2 Person Assistance ,Use of Upper Extremities Comments Mobility Comments Pt was sitting up in the bed as PT arrived. WIth HOB flat, pt needed min assist to pull up to sitting on R EOB (as he would at home). He was able to support himself in sitting. BP was 146/74. Pt stated his bed at home is quite tall and he may actually need both feet on the ground in order to lift himself into bed. PT raised the bed ~3 inches and educated pt on NWB standing and trnasfers. Pt needed max assist to stand with poor ability to keep the LLE off the floor. He was tremulous in standing, requiring constant assist for balance. He step pivot transferred to the chair set up on his right side max assist and max cues for LLE elevation. He sat on the chair and was able to scoot himself backward and forward on the seat. He stood from the chair mod assist x 1 but continued to need cues for NWB LLE. Pt sat again and was positioned with call light and tray table in reach. Gait Assessment Gait Gait Assistance Required: Maximum Assistance,1 Person Assist,2 Person Assist Able to Maintain Weight Bearing Status No During Gait Assistive Devices Assistive Device Gait Belt,Front Wheeled Walker Orthotic/Prosthetic Devices or Brace: No Comments Gait Comments Stand pivot transfer only with pt unable to keep LLE off the floor. He is unsteady on one foot and unsafe for ambulation at this time. Stair Climbing Assessment Comments Stair Climbing Comments Not assessed. PT-Balance Assessment Sitting Balance and Reactions Static Sitting Balance Ability Good Dynamic Sitting Balance Ability Fair Standing Balance and Reactions Static Standing Balance Ability Poor Dynamic Standing Balance Ability Poor Device Used FWW Balance Tests Single Limb Standing RLE 3 sec M5 PT-IP Objective Assessments Start: 03/28/21 09:23 Freq: NEEDED Status: Active Protocol: Document 03/28/21 12:03 AW (Rec: 03/28/21 13:46 AW [id number]) Orientation Orientation/Cognition Level of Alertness Confusional State Orientation Name,Day of Week,Place, Situation Language Function Ability No Deficits Noted Safety Awareness Decreased Safety Awareness Memory Description Short Term Impaired Gross Range of Motion Lower Extremity ROM Assessment Left Impaired Strength Upper Extremity Strength Assessment Within Functional Limits Lower Extremity Strength Assessment Left Impaired Hip 4-/5 Knee 4-/5 Ankle NT Comments Strength Comments RLE grossly 4-/5 Sensation Assessment Sensation Gross Sensation Right LE Impaired,Left LE Impaired Light Touch Impaired Proprioception (Position) Impaired Comments Sensation Comments Peripheral neuropathy affecting bilateral feet (left more affected than right) Muscle Tone Muscle Tone WNL No Comments Muscle Tone Comments Pt is tremulous in standing, all extremities. M6 PT-IP Treatment Start: 03/28/21 09:23 Freq: NEEDED Status: Active Protocol: Document 03/28/21 12:03 AW (Rec: 03/28/21 13:46 AW [id number]) Physical Therapy Treatment Education Education Provided Weight Bearing Status,Safety Other Treatments Other Treatment Performed Educated pt on weightbearing status, PT plan of care, rationale for use of FWW, and level of assist currently required for safe mobility. M7 PT-IP Assessment and Plan Start: 03/28/21 09:23 Freq: NEEDED Status: Active Protocol: Document 03/28/21 12:03 AW (Rec: 03/28/21 13:46 AW [id number]) PT Summary Assessment and Plan Potential Rehabilitation Potential Fair Status of Condition at Evaluation Evolving Summary Impairments Pain,ROM,Strength,Balance, Sensation,Cognition,Bed Mobility,Transfers,Gait, Activity Tolerance Assessment Summary Hugo is a 70 yo man seen for PT evaluation on POD1 following L distal fibula ORIF and deltoid repair. He is to be NWB LLE x 6 weeks. Pt is independent in all regards at baseline but has history of falls. He lives with his America who is limited in her ability to provide physical assist. On evaluation, pt was unable to maintain NWB LLE without max assist and needed mod to max assist for transfers. He is unsafe for ambulation at this time due to unsteadiness and tremors in standing. He will need SNF rehab to improve strength and mobility independence. Goals Bed Mobility Goal Independent Transfer Goal Contact Guard Assistance,Front Wheeled Walker Gait Goal Contact Guard Assistance,Front Wheel Walker Gait Distance 15 Days to Meet Goals 10 Frequency of Treatment Frequency Of Treatment Twice a Day Treatment Plan Physical Therapy Treatment Plan Bed Mobility Training,Transfer Training,Gait Training, Therapeutic Exercise,Balance Retraining,Post Op Education, Discharge Planning,Hot or Cold Pack,Neuromuscular Re-ed Other Recommendations and Next Treatment transfers; consider donning Focus shoe on RLE Precautions Other Precautions NWB LLE x 6 weeks per ortho Recommendations To Nursing Amount of Assist Needed 2 Person Assist Discharge Recommendations PT Discharge Recommendations SNF Rehab Transportation Needs at Discharge Wheelchair/Cabulance
--- NOTE | 2021-03-28 15:37 | PT-IP ANOTE ---
Attempted to see pt for PM treatment but pt was sleeping heavily. When roused, pt stated he was too tired to move. Educated pt on importance of continued mobility. Pt agreed to work with therapy in the morning.
[2021-03-28 16:00] VITALS: BP 125/58; PULSE 77; RESP 18; TEMP 37.3; O2SAT 93
--- NOTE | 2021-03-28 16:25 | PM.PN.1 ---
Subjective Subjective Date Patient Seen: 03/28/21 Time Patient Seen: 16:25 Interval history: This is a 70-year-old male with a past medical history of JAMES, hypertension admitted after a closed fracture of his left ankle. Medicine was consulted for assistance with management of his alcohol use. He has a history of minor withdrawal symptoms including tremors but no hospitalizations or intubations. He is currently doing well, and his last drink was 2 days ago. Exam Vital Signs (past 8 hours): - 03/28/21 11:44 03/28/21 16:00 Temperature 97.7 F 99.1 F Pulse Rate 85 77 Respiratory Rate 18 18 Blood Pressure 146/74 H 125/58 L Pulse Oximetry 94 93 Oxygen Delivery Method Room Air Oxygen Flow Rate 0 Narrative Exam Narrative: General: Patient is a well-developed, well-nourished in no distress at this time. HEENT: Normocephalic, atraumatic, extraocular muscles intact, oral pharynx is clear and mucous membranes are moist. Neck is supple and symmetric, trachea is midline, no adenopathy, no thyroid enlargement, nontender, no masses palpated. Negative for JVD Chest: Normal AP diameter and contour without kyphoscoliosis, no nasal flaring, retractions, or tachypneic labored Lungs: Auscultation of all lung gutierrez are clear without adventitious sounds, wheezes, rhonchi, or rales. Cardio: S1 & S2 with regular rate and rhythm without murmur, rubs, or gallops, no carotid bruit, no cardiac pulsations present. Abdomen: Soft nontender, negative for organomegaly, or masses. Bowel sounds are present in all 4 quadrants without guarding or rebound, no CVA tenderness. Musculoskeletal: Left lower leg is casted & bandaged, intact radial and pedal pulses are normal. Skin: Warm dry and intact without rashes, ulcerations or petechiae. Neuro: Alert and orientated x3, sensation to touch intact, no gross deficits noted of cranial nerves. No tongue fasciculations or tremulousness. Psych: Patient has a well-kept appearance, appropriate affect, mental status attitude thought context and judgment are appropriate for age. Objective Labs Result Diagrams: 03/28/21 05:00 03/28/21 05:00 Labs: Laboratory Results - last 24 hr 03/28/21 03/28/21 03/28/21 05:00 05:00 05:00 WBC 8.8 RBC 3.49 L Hgb 11.0 L Hct 33.0 L MCV 94.7 MCH 31.7 MCHC 33.4 RDW 16.9 H Plt Count 162 Neut % (Auto) 78.0 H Lymph % (Auto) 12.3 L [place] % (Auto) 7.2 Eos % (Auto) 2.1 Baso % (Auto) 0.4 Neut # (Auto) 6900 Lymph # (Auto) 1100 [place] # (Auto) 600 Eos # (Auto) 200 Baso # (Auto) 0 PT 11.6 INR 1.0 APTT 33 Sodium 132 L Potassium 4.5 Chloride 96 L Carbon Dioxide 31 BUN 13 Creatinine 1.13 Estimated GFR > 60.0 BUN/Creatinine Ratio 11.5 Glucose 136 H Calcium 8.0 L Phosphorus Magnesium Total Bilirubin 1.0 AST 25 ALT 15 Alkaline Phosphatase 122 Total Protein 6.3 Albumin 3.4 L Globulin 2.9 Albumin/Globulin Ratio 1.2 03/28/21 03/28/21 05:00 05:00 WBC RBC Hgb Hct MCV MCH MCHC RDW Plt Count Neut % (Auto) Lymph % (Auto) [place] % (Auto) Eos % (Auto) Baso % (Auto) Neut # (Auto) Lymph # (Auto) [place] # (Auto) Eos # (Auto) Baso # (Auto) PT INR APTT Sodium Potassium Chloride Carbon Dioxide BUN Creatinine Estimated GFR BUN/Creatinine Ratio Glucose Calcium Phosphorus 3.9 H Magnesium 2.1 Total Bilirubin AST ALT Alkaline Phosphatase Total Protein Albumin Globulin Albumin/Globulin Ratio [facility] Medical History Alcohol abuse Anxiety associated with depression Aspiration pneumonia Depression Excessive daytime sleepiness GERD (gastroesophageal reflux disease) Hyperlipidemia Hypertension Insomnia Obesity (BMI 30-39.9) Obstructive sleep apnea of adult Snoring Traumatic head injury less than 3 months ago Surgical History (Updated 03/28/21 @ 04:15 by FABIAN Ventura) History of open reduction and internal fixation (ORIF) procedure Family History (Updated 03/28/21 @ 04:16 by FABIAN Ventura) Father Heart attack Mother Diabetes mellitus Alzheimer's dementia Brother Heart disease Social History marital status: details: darek Cross, lives in [place] household members: spouse lives independently: Yes caregiver/support person: Yes (son [place] here from [place] for support) housing: house Smoking Status: Former smoker alcohol intake: current substance use type: does not use Assessment & Plan Assessment & Plan narrative: This is a 70-year-old male with a past medical history of JAMES, hypertension admitted after a closed fracture of his left ankle. Medicine was consulted for assistance with management of his alcohol use. 1. Alcohol abuse with history of mild withdrawal withdrawal, chronic, unknown if present on admission -continue CIWA protocol, no current symptoms of severe withdrawal. He has no history of hospitalizations or prior seizures, only endorsing mild tremulousness when he stops drinking. --patient to be monitored on tele --no significant electrolyte abnormalities -patient given thiamine and folic acid 2. Essential hypertension, acute on chronic, present on admission -blood pressure controlled today on his home medication -continue patient's losartan 100 mg q.day and metoprolol 50 mg q.day. 3. Obstructive sleep apnea, chronic -respiratory consult and CPAP provided 4. Depression, acute on chronic, unknown of present on admission -patient has stopped taking citalopram 6. Obesity as evidence by BMI of 30.8, acute on chronic, present on admission -at risk for complications after his surgery due to obesity. Code status: Full code Surrogate decision maker: Spouse Florence Flores LUKE PCR: Negative Medicine will continue to follow at this time until safely outside of the withdrawal window. Do not hesitate to contact us with any questions or concerns. Quality VTE Deep Vein Thrombosis/Pulmonary Embolism Present on Admission: No
[2021-03-28 20:00] VITALS: BP 137/62; PULSE 71; RESP 20; TEMP 36.6; O2SAT 95
[2021-03-28 23:23] VITALS: BP 132/62; PULSE 72; RESP 18; TEMP 36.6; O2SAT 96
[2021-03-29] MEDS: OXYCODONE IR 10 MG TABLET PO ×7 (02:42→22:26)
[2021-03-29 05:54] VITALS: BP 147/66; PULSE 66; RESP 20; TEMP 37.1; O2SAT 92
--- NOTE | 2021-03-29 07:27 | RT ---
Pt with bibasilar AM atelectasis noted during auscultation, R>L. IS issued with instructions. Pred vols: 3300, observed: 1999cc. Pt is pleasant and seems compliant to do his pulmonary toilet.
[2021-03-29] MEDS: ASPIRIN EC 81 MG TABLET 324 MG PO (07:56)
[2021-03-29] MEDS: THIAMINE 100 MG TABLET PO (07:57)
[2021-03-29] MEDS: METOPROLOL ER 50 MG TABLET PO (07:57)
[2021-03-29] MEDS: PANTOPRAZOLE DR 40 MG TABLET PO (07:57)
[2021-03-29] MEDS: CHOLECALCIFEROL (VITAMIN D3) 5,000 UNIT TABLET 5000 UNIT PO (07:57)
[2021-03-29] MEDS: TAMSULOSIN 0.4 MG CAPSULE PO (07:58)
[2021-03-29] MEDS: LOSARTAN 50 MG TABLET 100 MG PO (07:58)
[2021-03-29] MEDS: FOLIC ACID 1 MG TABLET PO (07:58)
[2021-03-29] MEDS: CALCIUM CARBONATE 600 MG TABLET 1200 MG PO (07:58)
[2021-03-29] MEDS: ACETAMINOPHEN 325 MG TABLET 650 MG PO ×3 (07:58→22:26)
[2021-03-29] MEDS: MULTIVITAMIN 1 TABLET 1 TAB PO (07:58)
[2021-03-29] MEDS: DOCUSATE 100 MG CAPSULE PO ×2 (07:59→22:26)
[2021-03-29] MEDS: FLUTICASONE 120 SPRAY/16 GM SPRAY.SUSP NASAL ×2 (07:59→22:25)
[2021-03-29 08:00] VITALS: BP 159/71; PULSE 69; RESP 18; TEMP 37.2; O2SAT 94
[2021-03-29 08:17] LABS: Hematocrit 32.3 % (41-53); Hemoglobin 10.8 g/dL (13.5-17.5)
[2021-03-29 08:26] LABS: BUN Creatinine Ratio 11.8 (6-22); Blood Urea Nitrogen 16 mg/dL (9-20); Calcium 8.2 mg/dL (8.4-10.2); Carbon Dioxide 30 mmol/L (22-32); Chloride 95 mmol/L (98-107); Estimated Glomerular Filt Rate 51.8 mL/min (>60); Glucose 109 mg/dL (80-110); HEMOLYSIS < 15 (0-50); Potassium 4.1 mmol/L (3.4-5.1); Sodium 132 mmol/L (137-145)
--- NOTE | 2021-03-29 09:00 | PM.PNPO.1 ---
Subjective Subjective Date Patient Seen: 03/29/21 Time Patient Seen: 09:00 Interval history: Postop day 2 left ankle fracture ORIF. With distal fibula ORIF and deltoid repair. Patient is lying comfortable in bed today eating breakfast. Pain is controlled. Peripheral nerve block worn off. He is being monitored on [facility] protocol for history of heavy alcohol use however demonstrating no symptoms currently. No complaints. Exam Vital Signs (past 8 hours): - 03/29/21 05:54 03/29/21 08:00 Temperature 98.8 F 98.9 F Pulse Rate 66 69 Respiratory Rate 20 18 Blood Pressure 147/66 H 159/71 H Pulse Oximetry 92 94 Oxygen Delivery Method Room Air Oxygen Flow Rate 0 Narrative Exam Narrative: Exam Narrative: Alert oriented male in no acute distress HEENT exam normocephalic atraumatic Respiratory unlabored on room air CV regular rate rhythm Musculoskeletal examination: Moving bilateral upper extremities full range of motion no pain Right lower extremity atraumatic grossly normal alignment demonstrates active dorsiflexion plantar flexion Left lower extremity in splint. Thigh soft. Wiggles toes. Sensation decreased consistent with known peripheral neuropathy. Brisk capillary refill. Objective Labs Result Diagrams: 03/29/21 08:08 03/29/21 08:08 Labs: Laboratory Results - last 24 hr 03/29/21 03/29/21 08:08 08:08 Hgb 10.8 L Hct 32.3 L Sodium 132 L Potassium 4.1 Chloride 95 L Carbon Dioxide 30 BUN 16 Creatinine 1.36 H Estimated GFR 51.8 L BUN/Creatinine Ratio 11.8 Glucose 109 Calcium 8.2 L [facility] Medical History Alcohol abuse Anxiety associated with depression Aspiration pneumonia Depression Excessive daytime sleepiness GERD (gastroesophageal reflux disease) Hyperlipidemia Hypertension Insomnia Obesity (BMI 30-39.9) Obstructive sleep apnea of adult Snoring Traumatic head injury less than 3 months ago Surgical History (Updated 03/28/21 @ 04:15 by FABIAN Ventura) History of open reduction and internal fixation (ORIF) procedure Family History (Updated 03/28/21 @ 04:16 by FABIAN Ventura) Father Heart attack Mother Diabetes mellitus Alzheimer's dementia Brother Heart disease Social History marital status: details: darek Cross, lives in [place] household members: spouse lives independently: Yes caregiver/support person: Yes (son Gurjit here from [place] for support) housing: house Smoking Status: Former smoker alcohol intake: current substance use type: does not use Assessment & Plan Post-op Postoperative Procedures: Procedures Operation Date: 03/27/21 16:00 Actual Procedures Side Surgeon p ORIF Ankle Fracture Jessica Marrero MD postop day 2 status post ORIF left ankle fracture with deltoid ligament repair. Doing well. Worked with physical therapy yesterday recommendation for group home placement. Social work will work on placement today. Plan discharge to group home tomorrow pending available bed. Discussed that splint can be touched down to the ground for balance but no weight-bearing through the splint does have an underlying rigid flatfoot that would contribute to extra stress along the medial ankle so we discussed for him to bring all the previous orthotic bracing options that he has used in the past to his postoperative appointment with me and we will discuss these along with additional options and he does report is flatfoot has been symptomatic. Will start aspirin 325 mg for DVT prophylaxis. He will take this once daily for 6 weeks while he is nonweightbearing. Will add vitamin-D and calcium for bone health History of alcohol use. On [facility] protocol monitoring for signs of withdrawal. None currently. being comanaged by the hospitalist team appreciate their recommendations. Dispo snf Currently requires continued inpatient admission for pain control and alcohol withdrawal monitoring and group home placement Quality VTE Deep Vein Thrombosis/Pulmonary Embolism Present on Admission: No
--- NOTE | 2021-03-29 11:40 | PT.IPTN ---
Current Diagnoses Obesity, unspecified (03/27/21) Alcohol abuse, uncomplicated (03/27/21) Obstructive sleep apnea (adult) (pediatric) (03/27/21) Other fracture of left lower leg, initial encounter for closed fracture (03/27/21) Surgery Performed Operation Date: 03/27/21 16:00 Actual Procedures p ORIF Ankle Fracture - Jessica Marrero MD Physical Therapy Treatment Note M2 PT-IP Current Condition Start: 03/28/21 09:23 Freq: NEEDED Status: Active Protocol: Document 03/28/21 12:03 AW (Rec: 03/28/21 13:46 AW [id number]) Physical Therapy Current Condition Current Condition Evaluation Date 03/28/21 Treatment Diagnosis L distal fibula ORIF and deltoid repair; impaired mobility and gait Onset Date 03/27/21 Weight Bearing Status Weight Bearing Status Non-Weight Bearing Allowed Weight Bearing Amount (enter % NWB LLE x 6 weeks per ortho or #) (%) M3 PT-IP Subjective Start: 03/28/21 09:23 Freq: NEEDED Status: Active Protocol: Document 03/29/21 10:04 MB (Rec: 03/29/21 11:29 MB [id number]) Subjective Physical Therapy Visit Type Type Treatment Note Visit Start Time 10:04 Visit Stop Time 10:20 Total Visit Minutes 16 Number of INSIDE SALES ENGINEER Visits 0 Therapy Pain Assessment Pain When Pain Assessed During Mobility Pain Present Pain Present Pain Reported Location Left Ankle Intensity 10 Pain Management Techniques Elevation,Timing of Activity with Medications M4 PT-IP Mobility and Gait Start: 03/28/21 09:23 Freq: NEEDED Status: Active Protocol: Document 03/29/21 10:04 MB (Rec: 03/29/21 11:29 MB [id number]) PT-Bed Mobility Assessment Supine to Sit Supine to Sit Standby Assistance,Head of Bed Elevated,Bedrails Scooting Scooting to Edge of Bed Standby Assistance PT-Transfer Assessment Sit to and From Stand Sit to and from Stand Minimal Assistance,1 Person Assistance,Use of Upper Extremities Equipment Transfer Assistive Device Gait Belt,Front Wheeled Walker Orthotic/Prosthetic Devices or Brace: No Transfers Transfer Destination Chair Transfer Ability Level of Assist Minimal Assistance,1 Person Assistance,Use of Upper Extremities Comments Mobility Comments Encouragement to lift his LLE and pt is able to do this once cued and then PT removes pillow and pt uses rail, HOB increased to move from supine to sitting on the EOB, moving to the left Gait Assessment Gait Gait Assistance Required: Minimum Assistance,1 Person Assist Distance (Feet) 3 Able to Maintain Weight Bearing Status No During Gait Assistive Devices Assistive Device Gait Belt,Front Wheeled Walker Orthotic/Prosthetic Devices or Brace: No Gait Deviations General Gait Pattern Antalgic,Flexed Trunk Factors Limiting Gait Function Factors Limiting Gait Function Decreased Activity Tolerance, Decreased Sensation,Decreased Strength,Difficulty Following Directions,Incoordination, Limited Range of Motion,Pain, Poor Balance Comments Gait Comments Pt tends to put his LLE on the floor and cues to keep his left knee flexed and up off the mattress for sit to stand. Once up to hop gait, he is only to take a few hop steps with little foot clearance and movement from bed to chair, about 3 feet. Pt requires PT to assist him to move the walker forward and backwards. Cues to not sit down quickly and to allow right leg to touch the chair. M5 PT-IP Objective Assessments Start: 03/28/21 09:23 Freq: NEEDED Status: Active Protocol: Document 03/28/21 12:03 AW (Rec: 03/28/21 13:46 AW [id number]) Orientation Orientation/Cognition Level of Alertness Confusional State Orientation Name,Day of Week,Place, Situation Language Function Ability No Deficits Noted Safety Awareness Decreased Safety Awareness Memory Description Short Term Impaired Gross Range of Motion Lower Extremity ROM Assessment Left Impaired Strength Upper Extremity Strength Assessment Within Functional Limits Lower Extremity Strength Assessment Left Impaired Hip 4-/5 Knee 4-/5 Ankle NT Comments Strength Comments RLE grossly 4-/5 Sensation Assessment Sensation Gross Sensation Right LE Impaired,Left LE Impaired Light Touch Impaired Proprioception (Position) Impaired Comments Sensation Comments Peripheral neuropathy affecting bilateral feet (left more affected than right) Muscle Tone Muscle Tone WNL No Comments Muscle Tone Comments Pt is tremulous in standing, all extremities. M6 PT-IP Treatment Start: 03/28/21 09:23 Freq: NEEDED Status: Active Protocol: Document 03/29/21 10:04 MB (Rec: 03/29/21 11:39 MB [id number]) Physical Therapy Treatment Education Education Provided Weight Bearing Status,Safety Other Treatments Other Treatment Performed Ed pt on toe wiggle and LAQ EOB M7 PT-IP Assessment and Plan Start: 03/28/21 09:23 Freq: NEEDED Status: Active Protocol: Document 03/29/21 10:04 MB (Rec: 03/29/21 11:39 MB [id number]) PT Summary Assessment and Plan Potential Rehabilitation Potential Fair Status of Condition at Evaluation Stable Summary Impairments Pain,ROM,Strength,Balance, Sensation,Cognition,Bed Mobility,Transfers,Gait, Activity Tolerance Assessment Summary Pt reports high pain once started PT, medication was given 30 minutes before PT treatment and he has trouble following commands for NWB LLE , transfers maintaining NWB and gait with hop steps RLE with RW. PT assist to move the walker and for pt to get to the chair today. His assist level does seem to be improving today. Will charge therapeutic activity for today 's treatment d/t equal amount of time spent educating pt on how to move his leg for bed mobility, transfers and short gait as well as short education and performance of LLE exercise and then short gait to chair. Goals Bed Mobility Goal Independent Transfer Goal Standby Assistance,Front Wheeled Walker Gait Goal Contact Guard Assistance,Front Wheel Walker Gait Distance 30 Days to Meet Goals 10 Frequency of Treatment Frequency Of Treatment Once a Day Treatment Plan Physical Therapy Treatment Plan Bed Mobility Training,Transfer Training,Gait Training, Therapeutic Exercise,Balance Retraining,Post Op Education, Discharge Planning,Hot or Cold Pack,Neuromuscular Re-ed Other Recommendations and Next Treatment transfers; consider donning Focus shoe on RLE Precautions Other Precautions NWB LLE Recommendations To Nursing Amount of Assist Needed 1 Person Assist Discharge Recommendations PT Discharge Recommendations SNF Rehab Transportation Needs at Discharge Wheelchair/Cabulance
[2021-03-29 12:00] VITALS: BP 143/65; PULSE 69; RESP 18; TEMP 36.4; O2SAT 95
--- NOTE | 2021-03-29 12:09 | PM.PN.1 ---
Subjective Subjective Date Patient Seen: 03/29/21 Time Patient Seen: 12:09 Interval history: This is a 70-year-old male with a past medical history of JAMES, hypertension admitted after a closed fracture of his left ankle. Medicine was consulted for assistance with management of his alcohol use. He has a history of minor withdrawal symptoms including tremors but no hospitalizations or intubations. He is currently doing well, and his last drink was now 3 days and remains without withdrawal symptoms today. No chest pain, shortness of breath. Planned for SNF. Exam Vital Signs (past 8 hours): - 03/29/21 05:54 03/29/21 08:00 Temperature 98.8 F 98.9 F Pulse Rate 66 69 Respiratory Rate 20 18 Blood Pressure 147/66 H 159/71 H Pulse Oximetry 92 94 Oxygen Delivery Method Room Air Oxygen Flow Rate 0 Narrative Exam Narrative: General: Patient is a well-developed, well-nourished in no distress at this time. HEENT: Normocephalic, atraumatic, extraocular muscles intact, oral pharynx is clear and mucous membranes are moist. Neck is supple and symmetric, trachea is midline, no adenopathy, no thyroid enlargement, nontender, no masses palpated. Negative for JVD Chest: Normal AP diameter and contour without kyphoscoliosis, no nasal flaring, retractions, or tachypneic labored Lungs: Auscultation of all lung gutierrez are clear without adventitious sounds, wheezes, rhonchi, or rales. Cardio: S1 & S2 with regular rate and rhythm without murmur, rubs, or gallops, no carotid bruit, no cardiac pulsations present. Abdomen: Soft nontender, negative for organomegaly, or masses. Bowel sounds are present in all 4 quadrants without guarding or rebound, no CVA tenderness. Musculoskeletal: Left lower leg is casted & bandaged, intact radial and pedal pulses are normal. Skin: Warm dry and intact without rashes, ulcerations or petechiae. Neuro: Alert and orientated x3, sensation to touch intact, no gross deficits noted of cranial nerves. No tongue fasciculations or tremulousness. Psych: Patient has a well-kept appearance, appropriate affect, mental status attitude thought context and judgment are appropriate for age. Objective Labs Result Diagrams: 03/29/21 08:08 03/29/21 08:08 Labs: Laboratory Results - last 24 hr 03/29/21 03/29/21 08:08 08:08 Hgb 10.8 L Hct 32.3 L Sodium 132 L Potassium 4.1 Chloride 95 L Carbon Dioxide 30 BUN 16 Creatinine 1.36 H Estimated GFR 51.8 L BUN/Creatinine Ratio 11.8 Glucose 109 Calcium 8.2 L [facility] Medical History Alcohol abuse Anxiety associated with depression Aspiration pneumonia Depression Excessive daytime sleepiness GERD (gastroesophageal reflux disease) Hyperlipidemia Hypertension Insomnia Obesity (BMI 30-39.9) Obstructive sleep apnea of adult Snoring Traumatic head injury less than 3 months ago Surgical History (Updated 03/28/21 @ 04:15 by FABIAN Ventura) History of open reduction and internal fixation (ORIF) procedure Family History (Updated 03/28/21 @ 04:16 by AFBIAN Ventura) Father Heart attack Mother Diabetes mellitus Alzheimer's dementia Brother Heart disease Social History marital status: details: darek Cross, lives in [place] household members: spouse lives independently: Yes caregiver/support person: Yes (son Gurjit here from [place] for support) housing: house Smoking Status: Former smoker alcohol intake: current substance use type: does not use Assessment & Plan Assessment & Plan narrative: This is a 70-year-old male with a past medical history of JAMES, hypertension admitted after a closed fracture of his left ankle. Medicine was consulted for assistance with management of his alcohol use. 1. Alcohol abuse with history of mild withdrawal withdrawal, chronic, unknown if present on admission -continue CIWA protocol, no current symptoms of severe withdrawal. He has no history of hospitalizations or prior seizures, only endorsing mild tremulousness when he stops drinking. No symptoms thus far, unlikely to develop further symptoms. -can discontinue tele. --no significant electrolyte abnormalities -patient given thiamine and folic acid 2. Essential hypertension, acute on chronic, present on admission -blood pressure likely elevated today with increased pain. -continue patient's losartan 100 mg q.day and metoprolol 50 mg q.day. 3. Obstructive sleep apnea, chronic -respiratory consult and CPAP provided 4. Depression, acute on chronic, unknown of present on admission -patient has stopped taking citalopram 6. Obesity as evidence by BMI of 30.8, acute on chronic, present on admission -at risk for complications after his surgery due to obesity. Code status: Full code Surrogate decision maker: Spouse Florence Flores COVID PCR: Negative Withdrawal symptoms have not developed. Medicine will sign off at this time. Do not hesitate to contact us with any questions or concerns. Code: Full, Spouse Florence Flores surrogate. Quality VTE Deep Vein Thrombosis/Pulmonary Embolism Present on Admission: No
--- NOTE | 2021-03-29 14:52 | PC.NURSE ---
Doing well today. Pt reports pain well controlled with PRN oxycodone. Able to get up to chair with 1PA, fww, gait belt. VSS. RA. Dsg to LLE CDI. Plan is for dc to SNF tomorrow. Pt requested I not wake him up for his 1500 tylenol. States he will notify RN when he is ready. Using call light and making needs known.
[2021-03-29 16:00] VITALS: BP 134/63; PULSE 79; RESP 16; TEMP 36.2; O2SAT 95
[2021-03-29 21:50] VITALS: BP 144/69; PULSE 86; RESP 17; TEMP 37; O2SAT 96
[2021-03-30 01:00] VITALS: BP 147/67; PULSE 65; RESP 18; TEMP 36.5; O2SAT 97
[2021-03-30] MEDS: OXYCODONE IR 10 MG TABLET PO ×6 (01:20→20:33)
[2021-03-30 05:00] VITALS: BP 177/79; PULSE 65; RESP 18; TEMP 36.3; O2SAT 97
[2021-03-30 08:00] VITALS: BP 173/76; PULSE 61; RESP 18; TEMP 36.7; O2SAT 98
[2021-03-30] MEDS: DOCUSATE 100 MG CAPSULE PO ×2 (08:33→20:32)
[2021-03-30] MEDS: LOSARTAN 50 MG TABLET 100 MG PO (08:33)
[2021-03-30] MEDS: METOPROLOL ER 50 MG TABLET PO (08:33)
[2021-03-30] MEDS: CHOLECALCIFEROL (VITAMIN D3) 5,000 UNIT TABLET 5000 UNIT PO (08:33)
[2021-03-30] MEDS: THIAMINE 100 MG TABLET PO (08:33)
[2021-03-30] MEDS: TAMSULOSIN 0.4 MG CAPSULE PO (08:33)
[2021-03-30] MEDS: PANTOPRAZOLE DR 40 MG TABLET PO (08:33)
[2021-03-30] MEDS: ASPIRIN EC 81 MG TABLET 324 MG PO (08:33)
[2021-03-30] MEDS: FLUTICASONE 120 SPRAY/16 GM SPRAY.SUSP NASAL ×2 (08:33→20:35)
[2021-03-30] MEDS: CALCIUM CARBONATE 600 MG TABLET 1200 MG PO (08:33)
[2021-03-30] MEDS: MULTIVITAMIN 1 TABLET 1 TAB PO (08:33)
[2021-03-30] MEDS: FOLIC ACID 1 MG TABLET PO (08:34)
[2021-03-30] MEDS: ACETAMINOPHEN 325 MG TABLET 650 MG PO ×3 (08:34→20:33)
--- NOTE | 2021-03-30 10:20 | PT.IPTN ---
Current Diagnoses Obesity, unspecified (03/27/21) Alcohol abuse, uncomplicated (03/27/21) Obstructive sleep apnea (adult) (pediatric) (03/27/21) Other fracture of left lower leg, initial encounter for closed fracture (03/27/21) Surgery Performed Operation Date: 03/27/21 16:00 Actual Procedures p ORIF Ankle Fracture - Jessica Marrero MD Physical Therapy Treatment Note M2 PT-IP Current Condition Start: 03/28/21 09:23 Freq: NEEDED Status: Active Protocol: Document 03/28/21 12:03 AW (Rec: 03/28/21 13:46 AW [id number]) Physical Therapy Current Condition Current Condition Evaluation Date 03/28/21 Treatment Diagnosis L distal fibula ORIF and deltoid repair; impaired mobility and gait Onset Date 03/27/21 Weight Bearing Status Weight Bearing Status Non-Weight Bearing Allowed Weight Bearing Amount (enter % NWB LLE x 6 weeks per ortho or #) (%) M3 PT-IP Subjective Start: 03/28/21 09:23 Freq: NEEDED Status: Active Protocol: Document 03/30/21 10:20 AB (Rec: 03/30/21 12:45 AB [id number]) Subjective Physical Therapy Visit Type Type Treatment Note Visit Start Time 10:20 Visit Stop Time 10:55 Total Visit Minutes 35 Number of HEAD OF TRANSPORT LOGISTICS Visits 0 Physical Therapy Visit Comments Patient Comments agreeable to do PT Therapy Pain Assessment Pain When Pain Assessed At Rest Pain Present Pain Present Pain Reported Location Left Ankle Intensity 6 Scale Used Numeric (0 - 10) Description Spasm Pain Behaviors Guarding,Holding Area Pain Management Techniques Distraction,Modification of Treatment,Re-positioning, Timing of Activity with Medications M4 PT-IP Mobility and Gait Start: 03/28/21 09:23 Freq: NEEDED Status: Active Protocol: Document 03/30/21 10:20 AB (Rec: 03/30/21 12:45 AB [id number]) PT-Bed Mobility Assessment Supine to Sit Supine to Sit Standby Assistance Sit to Supine Sit to Supine Standby Assistance PT-Transfer Assessment Sit to and From Stand Sit to and from Stand Minimal Assistance,Moderate Assistance,1 Person Assistance ,Use of Upper Extremities Equipment Transfer Assistive Device Gait Belt,Front Wheeled Walker Orthotic/Prosthetic Devices or Brace: Yes Transfers Transfer Destination Bed,Chair Transfer Technique Stand Step Pivot Transfer Ability Level of Assist Minimal Assistance,1 Person Assistance,Use of Upper Extremities Comments Mobility Comments pt completed supine to sit SBA . educated on weight bearing restriction on LLE. educated on techniques on sit<>stand and transfers using FWW and maintaining NWB on LLE. completed sit to stand mod A and cues. instructed pt on how to do sit to stand and increase RLE stability and use of fWW for support. completed sit <>stand x 4 more reps requiring min A and cues . instructed with step transfer to chair. completed x 2 set bed<>chair and completed min A and cues using FWW. pt was able to take a few steps using FWW and maintaining NWB on LLE during transfers min A and cues. pt can be impulsive and requires cues for safety. pt requested to go back to bed afterwards. positioned and elevated LLE in bed. call light and table placed within reach. Gait Assessment Comments Gait Comments able to take steps during transfers. M5 PT-IP Objective Assessments Start: 03/28/21 09:23 Freq: NEEDED Status: Active Protocol: Document 03/28/21 12:03 AW (Rec: 03/28/21 13:46 AW [id number]) Orientation Orientation/Cognition Level of Alertness Confusional State Orientation Name,Day of Week,Place, Situation Language Function Ability No Deficits Noted Safety Awareness Decreased Safety Awareness Memory Description Short Term Impaired Gross Range of Motion Lower Extremity ROM Assessment Left Impaired Strength Upper Extremity Strength Assessment Within Functional Limits Lower Extremity Strength Assessment Left Impaired Hip 4-/5 Knee 4-/5 Ankle NT Comments Strength Comments RLE grossly 4-/5 Sensation Assessment Sensation Gross Sensation Right LE Impaired,Left LE Impaired Light Touch Impaired Proprioception (Position) Impaired Comments Sensation Comments Peripheral neuropathy affecting bilateral feet (left more affected than right) Muscle Tone Muscle Tone WNL No Comments Muscle Tone Comments Pt is tremulous in standing, all extremities. M6 PT-IP Treatment Start: 03/28/21 09:23 Freq: NEEDED Status: Active Protocol: Document 03/30/21 10:20 AB (Rec: 03/30/21 12:45 AB [id number]) Physical Therapy Treatment Education Education Provided Precautions,Weight Bearing Status,Safety M7 PT-IP Assessment and Plan Start: 03/28/21 09:23 Freq: NEEDED Status: Active Protocol: Document 03/30/21 10:20 AB (Rec: 03/30/21 12:45 AB [id number]) PT Summary Assessment and Plan Potential Rehabilitation Potential Good Summary Impairments Pain,ROM,Strength,Balance, Coordination,Sensation,Tone, Cognition,Bed Mobility, Transfers,Gait,Activity Tolerance Progress Towards Goals Slow Progress due to Medical Issues,Slow Progress - Other Assessment Summary pt requiring min to mod A with mobility using FWW for transfers. pt will need SNF rehab to improve strength and mobility independence. Goals Bed Mobility Goal Independent Transfer Goal Standby Assistance,Front Wheeled Walker Gait Goal Contact Guard Assistance,Front Wheel Walker Gait Distance 30 Days to Meet Goals 10 Frequency of Treatment Frequency Of Treatment Once a Day Treatment Plan Physical Therapy Treatment Plan Bed Mobility Training,Transfer Training,Gait Training, Therapeutic Exercise,Balance Retraining,Post Op Education, Discharge Planning,Hot or Cold Pack,Neuromuscular Re-ed Precautions Other Precautions NWB LLE Recommendations To Nursing Amount of Assist Needed 1 Person Assist Discharge Recommendations PT Discharge Recommendations SNF Rehab Transportation Needs at Discharge Wheelchair/Cabulance
--- NOTE | 2021-03-30 10:35 | P.PN_ITS ---
Subjective Subjective Date Patient Seen: 03/30/21 Time Patient Seen: 07:44 Interval history: Patient's pain is moderate. Denies fever or chills. No nausea or vomiting. Exam Vital Signs (past 8 hours): - 03/30/21 05:00 03/30/21 08:00 Temperature 97.3 F L 98.0 F Pulse Rate 65 61 Respiratory Rate 18 18 Blood Pressure 177/79 H 173/76 H Pulse Oximetry 97 98 Oxygen Delivery Method Room Air Oxygen Flow Rate 0 Narrative Exam Narrative: 70-year-old male resting comfortably in bed in no apparent distress. Splint is intact left ankle. Able to move all toes, left. Sensation grossly intact to light touch distal left LE. Good capillary refill. Objective Labs Result Diagrams: 03/29/21 08:08 03/29/21 08:08 [facility] Medical History Alcohol abuse Anxiety associated with depression Aspiration pneumonia Depression Excessive daytime sleepiness GERD (gastroesophageal reflux disease) Hyperlipidemia Hypertension Insomnia Obesity (BMI 30-39.9) Obstructive sleep apnea of adult Snoring Traumatic head injury less than 3 months ago Surgical History History of open reduction and internal fixation (ORIF) procedure Family History Father Heart attack Mother Diabetes mellitus Alzheimer's dementia Brother Heart disease Social History marital status: details: darek Cross, lives in [place] household members: spouse lives independently: Yes caregiver/support person: Yes (son Gurjit here from [place] for support) housing: house Smoking Status: Former smoker alcohol intake: current substance use type: does not use Assessment & Plan Post-op Postoperative Procedures: Procedures Operation Date: 03/27/21 16:00 Actual Procedures Side Surgeon p ORIF Ankle Fracture Jessica Marrero MD Postop day 3 status post left ankle fracture open reduction internal fixation. Plan discharge to group home when medically stable. Splint can be touched down to the ground for balance but no weight-bearing through the splint. Follow up SNO in 10-14 days Aspirin 325 mg for DVT prophylaxis. He will take this once daily for 6 weeks while he is nonweightbearing. History of alcohol use. On CIWA protocol monitoring for signs of withdrawal. Being comanaged by the hospitalist team appreciate their recommendations. Quality VTE Deep Vein Thrombosis/Pulmonary Embolism Present on Admission: No
--- NOTE | 2021-03-30 11:09 | CM.DPNOTE ---
Ivelisse called from [facility] and confirmed pt. will be transported at 1545. Sindhu agreed to this time. Giselle Fajardo CM Asst.
[2021-03-30 11:36] LABS: COVID19 - ADMIT (NP swab/PCR) Negative (Negative)
[2021-03-30 12:00] VITALS: BP 137/64; PULSE 60; RESP 17; TEMP 37; O2SAT 96
--- NOTE | 2021-03-30 15:10 | CM.DPNOTE ---
Spoke with Ivelisse at [facility] to change transport from today at 1545 to tomorrow morning at 10:30 am. There is no SNF order at this time. I will call Ivelisse tomorrow morning to give her an update. Giselle Fajardo CM Asst.
--- NOTE | 2021-03-30 15:52 | CM.DANOTE ---
DCP/continued: Reviewed chart. Received vm from [facility] indicating that they can accept patient when medically stable for discharge. Notified RN and placed call to [facility]/Balbir Hoover. Per notes Balbir Hoover rounding on patient today. As of 4:00pm today no d/c order or call back from Orthopedics. Notified Ivelisse at [facility] that d/c most likely will occur tomorrow 03-31-21. JUANA/Giselle also aware and will watch for orders. PASRR faxed to [facility]. Per h&p patient on daily antidepressant at home but no record of it here? RN made aware and will discuss with provider. PASRR may need to be changed pending medication at time of d/c. Met with patient today. Copy of MARYSOL provided to patient because it was initially thought that he would d/c today. Patient aware and agreeable to current plan. P: Anticipate d/c to [facility] on 03-31-21. PASRR will need to be reviewed. NICOLLE Camp
[2021-03-30 18:08] VITALS: BP 140/65; PULSE 60; RESP 17; TEMP 36.6; O2SAT 97
[2021-03-30 20:17] VITALS: BP 144/64; PULSE 55; RESP 17; TEMP 36.5; O2SAT 96
[2021-03-31] MEDS: OXYCODONE IR 10 MG TABLET PO ×4 (02:12→11:17)
[2021-03-31 02:15] VITALS: BP 163/78; PULSE 59; RESP 18; TEMP 36.3; O2SAT 96
[2021-03-31 05:29] VITALS: BP 161/62; PULSE 58; RESP 18; TEMP 36.5; O2SAT 95
[2021-03-31] MEDS: ACETAMINOPHEN 325 MG TABLET 650 MG PO (08:15)
[2021-03-31] MEDS: CHOLECALCIFEROL (VITAMIN D3) 5,000 UNIT TABLET 5000 UNIT PO (08:15)
[2021-03-31] MEDS: DOCUSATE 100 MG CAPSULE PO (08:15)
[2021-03-31] MEDS: FLUTICASONE 120 SPRAY/16 GM SPRAY.SUSP NASAL (08:16)
[2021-03-31] MEDS: METOPROLOL ER 50 MG TABLET PO (08:16)
[2021-03-31] MEDS: ASPIRIN EC 81 MG TABLET 324 MG PO (08:16)
[2021-03-31] MEDS: THIAMINE 100 MG TABLET PO (08:16)
[2021-03-31] MEDS: FOLIC ACID 1 MG TABLET PO (08:16)
[2021-03-31] MEDS: PANTOPRAZOLE DR 40 MG TABLET PO (08:16)
[2021-03-31] MEDS: MULTIVITAMIN 1 TABLET 1 TAB PO (08:16)
[2021-03-31] MEDS: CALCIUM CARBONATE 600 MG TABLET 1200 MG PO (08:16)
[2021-03-31] MEDS: TAMSULOSIN 0.4 MG CAPSULE PO (08:16)
[2021-03-31] MEDS: LOSARTAN 50 MG TABLET 100 MG PO (08:16)
[2021-03-31 08:19] VITALS: BP 187/80; PULSE 60; RESP 18; TEMP 36.3; O2SAT 98
--- NOTE | 2021-03-31 08:28 | P.DS_ITS ---
History of Present Illness History of Present Illness Date Patient Seen: 03/31/21 Time Patient Seen: 08:28 Chief complaint: Fall last night,fracture left leg,from [facility] Narrative: Pain is 3/10. Denies fever or chills. No nausea or vomiting. Discharge Providers Provider Date of admission: 03/27/21 15:11 Discharge Date: 03/31/21 Consults: 03/27/21 14:11 Consult to Hospitalist Service Stat Comment: Consulting Provider: Kelby Salgado Reason for consultation: Alcohol withdrawal/high blood pressure Has provider been notified: Yes 03/27/21 19:06 Consult to Discharge Planning Routine Comment: snf ? family interested Consult to Physical Therapy Evaluate & Treat Comment: nwb lle may touch down for balance Physician Instructions: Evaluate and Treat Consult to Respiratory Therapy Evaluate & Treat Comment: cpap Physician Instructions: Evaluate and treat Discharge provider: Balbir Hoover PA-C Summary Hospital Course Discharge Diagnosis: Left ankle fracture dislocation, distal fibula fracture, deltoid rupture. Alcohol abuse/withdrawal, chronic, unknown if present on admission -patient admitted under [facility] protocols --patient to be monitored on tele medicine, vital signs q.4 hours, intake and output monitored Q shift. -- A.m. labs CBC, CMP, Mag, PT and PTT-will monitor electrolytes magnesium and phosphorus -patient given thiamin and folic acid -monitor patient for complications of fluid overload variceal hemorrhage, ascites, spontaneous bacterial peritonitis, hepatocellular carcinoma, hepatic renal syndrome, or hepatopulmonary syndrome, septic shock -patient is high risk of falls. Fall & seizure precautions in place -patient counseled on stopping drinking and seeking follow-up outpatient mental health and rehabilitative services Essential hypertension, acute on chronic, present on admission -stabilize patients b/p -continue patient's losartan 50 mg q.day and metoprolol 50 mg q.day. Obstructive sleep apnea, chronic, not present on admission -respiratory consult and CPAP provided -maintain O2 saturation >90% -monitor patient for respiratory distress or increased work of breathing. Depression, acute on chronic, unknown of present on admission -continue patient's citalopram 40 mg daily. Neuropathy, acute on chronic, unknown if present on admission -continue patient's gabapentin 300 mg t.i.d. Obesity as evidence by BMI of 30.8, acute on chronic, present on admission -consideration will be given to dietary counseling Hospital Course: 1. Open reduction internal fixation lateral malleolus 40441 2. Repair left deltoid ligament CPT code 56354 Same procedure as scheduled: Yes Indications: Patient is a 70-year-old male with a history of alcohol use hypertension and sleep apnea who fell stepping off his deck approximately [address] [facility]. He was seen at the ER on the [place] where was found to have a left ankle fracture dislocation. He had a reduction procedure in the ER at [place]. He had residual lateral talar subluxation. He was indicated for surgical treatment for his unstable ankle fracture. He was transferred to [facility] for surgical services. We discussed ankle fracture fixation possible syndesmotic fixation and possible deltoid ligament repair depending on intraoperative findings. Patient does have underlying neuropathy. He does not have diabetes. 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 The risks and benefits of the procedure have been discussed with the patient even opportunity to ask questions. This was also discussed with the patient's over the telephone. The risks of surgery include but are not limited to infection, malunion, nonunion, persistence of pain, damage to nerves and blood vessels, posttraumatic arthritis, DVT, PE, cardiopulmonary complicat ions and . The patient expressed a thorough understanding of the risks and benefits of surgery and has elected to proceed. Consent was signed. Surgeon: Jessica Marrero Click Yes if Unassisted: Yes Anesthesia Type: General, Peripheral nerve block and Local Operative Notes Findings: There is an unstable oblique lateral malleolus fracture encountered. Syndesmosis was intact and attached to the proximal fragment. Proximal distal fragments were reduced restoring length and alignment and stabilized with 2 x 2.7 lag screws in the long thin fracture and neutralized with a 7 hole 1/3 tubular locking plate from the [employer] set. Ankle stability was then tested. The syndesmosis did not widen but there was a slight valgus gapping medially. Based on the preoperative x-rays and large medial dye stasis it was expected that there was a complete deltoid rupture. Based on the slight valgus opening and the patient underlying flatfoot he was indicated for deltoid repair. Medial incision was opened in the deltoid inspected there was a complete rupture off the medial malleolus with a very small bony avulsion and this was repaired using 2-0 FiberWire through drill holes in the medial malleolus restoring congruity. Closure Type: primary Specimen(s): none sent Prosthetic devices, grafts, tissues, transplants, or devices: [employer] 7 hole 1/3 tubular locking plate with 2 cortical screws and 1 locking screw proximally. An locking screws distally to decrease prominence and she has stable fixation in the soft distal bone. Two 2.7 lag screws were utilized. The deltoid ligament was repaired with 2-0 FiberWire through drill holes Estimated Blood Loss (mL): 20 Blood products transfused: none Tourniquet time (min): 84 Patient admitted to the hospital for left ankle fracture. Patient consented and taken operating room for open reduction internal fixation left ankle fracture on March 27, 2021. Internal Medicine consulted. Patient has remained stable. [facility] Exam Vital Signs (past 8 hours): - 03/31/21 02:15 03/31/21 05:29 03/31/21 08:19 Temperature 97.4 F L 97.7 F 97.4 F L Pulse Rate 59 L 58 L 60 Respiratory Rate 18 18 18 Blood Pressure 163/78 H 161/62 H 187/80 H Pulse Oximetry 96 95 98 Oxygen Delivery Method Room Air Oxygen Flow Rate 0 Narrative Exam Narrative: 70-year-old male eating breakfast in bed in no apparent distress. Splint is intact. Good capillary refill on the left. Sensation grossly intact. Able to wiggle all toes. Objective Labs Result Diagrams: 03/29/21 08:08 03/29/21 08:08 Labs: Laboratory Results - last 24 hr 03/30/21 10:35 SARS-CoV-2 (PCR) Negative [facility] Medical History Alcohol abuse Anxiety associated with depression Aspiration pneumonia Depression Excessive daytime sleepiness GERD (gastroesophageal reflux disease) Hyperlipidemia Hypertension Insomnia Obesity (BMI 30-39.9) Obstructive sleep apnea of adult Snoring Traumatic head injury less than 3 months ago Surgical History History of open reduction and internal fixation (ORIF) procedure Family History Father Heart attack Mother Diabetes mellitus Alzheimer's dementia Brother Heart disease Social History marital status: details: darek Cross, lives in [place] household members: spouse lives independently: Yes caregiver/support person: Yes (son Gurjit here from [place] for support) housing: house Smoking Status: Former smoker alcohol intake: current substance use type: does not use Discharge Assessment & Plan Assessment and Plan Assessment: Patient progressing as expected status post left ankle open reduction internal fixation. Plan of Treatment: Patient will be nonweightbearing on the left lower extremity. May touchdown for balance only. Due to the situation at home with stairs and several large very active dog's the patient and his do have some interest in short-term placement if available. He will use aspirin daily for DVT prophylaxis starting postop day 1. Follow-up [facility] in 2 weeks. Discharge to [facility] facility today in stable condition. Discharge Plan Discharge Plan Patient Disposition: SNF Transfer to: [facility], [facility] Discharge orders & Medications Prescriptions: New acetaminophen 325 mg Tablet 650 mg PO TID Qty: 50 RF: 0 thiamine HCl (vitamin B1) [Vitamin B-1] 100 mg Tablet 100 mg PO DAILY Qty: 14 RF: 0 aspirin 81 mg Tablet,Delayed Release (Dr/Ec) 324 mg PO DAILY 42 Days RF: 0 calcium carbonate [Calcium 600] 600 mg calcium (1,500 mg) Tablet 1,200 mg PO DAILY Qty: 50 RF: 0 tamsulosin [Flomax] 0.4 mg Capsule 0.4 mg PO DAILY Qty: 28 RF: 0 docusate sodium [DOK] 100 mg Capsule 100 mg PO BID Qty: 30 RF: 0 folic acid 1 mg Tablet 1 mg PO DAILY Qty: 20 RF: 0 fluticasone propionate 50 mcg/actuation [place],Suspension 1 spray intranasal BID 14 Days RF: 0 cholecalciferol (vitamin D3) [Vitamin D3] 125 mcg (5,000 unit) Tablet 5,000 unit PO DAILY Qty: 42 RF: 0 oxycodone 5 mg tablet 5 - 10 mg PO Q4H PRN (Reason: pain) Qty: 50 RF: 0 Continued metoprolol succinate 50 MG tablet extended release 24 hr 50 mg PO QDAY Qty: 0 RF: 0 losartan 50 MG tablet 50 mg PO QDAY Qty: 0 RF: 0 omeprazole 40 MG capsule,delayed release(DR/EC) 40 mg PO QDAY Qty: 0 RF: 0 pravastatin 10 MG tablet 10 mg PO HS Qty: 0 RF: 0 (DME) [employer] Dreamstation CPAP Qty: 1 RF: 0 lorazepam 0.5 mg Tablet 0.5 mg PO TID PRN (Reason: Withdrawal Symptoms) RF: 0 cholecalciferol (vitamin D3) 2,000 unit PO DAILY RF: 0 Discontinued citalopram [Celexa] 40 mg Tablet 40 mg PO DAILY RF: 0 Follow up/Referrals: Jessica Marrero MD [Physician] - (Schedule appt. for follow up with Dr. Angella hernandez 2 weeks) Cirilo Maldonado MD [Family Provider] - Discharge Health Status Multidrug resistant organism: No MDRO Diet/Activity/Treatments Diet: Diet as Tolerated Food texture: Regular Activity: NWB LLE Skin/Wound/Dressing Care Report to your healthcare provider any signs of infection, such as:: chills, fever, night sweats, increased pain, unusual drainage and unusual redness Dressing: keep splint clean and dry Special Rehabilitation Services Reason for rehabilitation: Post-operative therapy Rehab type: Physical therapy and Occupational therapy Visit Report/Discharge Packet Instructions: DI for Open Reduction Internal Fixation Surgery, DI for Prescription Opioid Use Quality VTE Deep Vein Thrombosis/Pulmonary Embolism Present on Admission: No
--- NOTE | 2021-03-31 09:12 | CM.DPNOTE ---
Faxed signed med list, pasrr, etc. to [facility] per [facility] and received fax confirmation. Giselle Fajardo CM Asst.
--- NOTE | 2021-03-31 10:32 | PT.IPTN ---
Current Diagnoses Obesity, unspecified (03/27/21) Alcohol abuse, uncomplicated (03/27/21) Obstructive sleep apnea (adult) (pediatric) (03/27/21) Other fracture of left lower leg, initial encounter for closed fracture (03/27/21) Surgery Performed Operation Date: 03/27/21 16:00 Actual Procedures p ORIF Ankle Fracture - Jessica Marrero MD Physical Therapy Treatment Note M2 PT-IP Current Condition Start: 03/28/21 09:23 Freq: NEEDED Status: Active Protocol: Document 03/28/21 12:03 AW (Rec: 03/28/21 13:46 AW [id number]) Physical Therapy Current Condition Current Condition Evaluation Date 03/28/21 Treatment Diagnosis L distal fibula ORIF and deltoid repair; impaired mobility and gait Onset Date 03/27/21 Weight Bearing Status Weight Bearing Status Non-Weight Bearing Allowed Weight Bearing Amount (enter % NWB LLE x 6 weeks per ortho or #) (%) M3 PT-IP Subjective Start: 03/28/21 09:23 Freq: NEEDED Status: Active Protocol: Document 03/31/21 09:58 SP (Rec: 03/31/21 11:23 SP [id number]) Subjective Physical Therapy Visit Type Type Treatment Note Visit Start Time 09:58 Visit Stop Time 10:32 Total Visit Minutes 34 Notes Vitals taken during tx symptomatic: -seated at EOB BP (L UE) 193/ 79 -seated 5 min at EOB BP 169/79 -supine post use of BSC BP 177 /81 Number of ACID TREATER Visits 1 Physical Therapy Visit Comments Patient Comments Pt agreeable to working with ACID TREATER, wishes to use BSC due to feeling constipated. I don't know why I didn't recognize the nurse earlier when talked and felt like floating last night when laying in bed. I don't believe I am going through alcohol withdrawal, am familiar with and it's not the same. Patient Goals Get stronger to return home, agreeable to SNF. Therapy Pain Assessment Pain When Pain Assessed During Mobility Pain Present Pain Present Pain Reported Location Left Ankle Intensity 4 Scale Used Numeric (0 - 10) Description With Movement Pain Behaviors Facial Grimacing Pain Management Techniques Modification of Treatment,Re- positioning,Timing of Activity with Medications M4 PT-IP Mobility and Gait Start: 03/28/21 09:23 Freq: NEEDED Status: Active Protocol: Document 03/31/21 09:58 SP (Rec: 03/31/21 11:23 SP [id number]) PT-Bed Mobility Assessment Supine to Sit Supine to Sit Standby Assistance Sit to Supine Sit to Supine Standby Assistance PT-Transfer Assessment Sit to and From Stand Sit to and from Stand Minimal Assistance,1 Person Assistance,Use of Upper Extremities Equipment Transfer Assistive Device Gait Belt,Front Wheeled Walker Orthotic/Prosthetic Devices or Brace: Yes Transfers Transfer Destination Bed,Bedside Commode Transfer Technique Stand Step Pivot Transfer Ability Level of Assist Minimal Assistance,1 Person Assistance,Use of Upper Extremities Comments Mobility Comments Pt completed supine<> sit SBA with no support for LLE repositioning. Assessed vitals in sitting EOB see notes, elevated asymptomatic. Sit> stand Min A cues for push from bed and hop on stable RLE pivot to BSC using FWW Min A for trunk balance. Pt required assist for undergarment mgt, Stand>sit Min A, good NWB on LLE, did note contact at times but not WB into during stationary stance. BSC use voiding unsuccessful. sit> stand from BSC Min A and hops back to bed 2 ft each direction using fWW Min A self fWW mgt. stand>sit CGA, Sit> supine SBA. Pt had call light and all needs in reach before left, bed alarmed. Gait Assessment Gait Gait Assistance Required: Minimum Assistance,1 Person Assist Distance (Feet) 2 Able to Maintain Weight Bearing Status No During Gait Assistive Devices Assistive Device Gait Belt,Front Wheeled Walker Orthotic/Prosthetic Devices or Brace: Yes Gait Deviations General Gait Pattern Antalgic,Flexed Trunk Factors Limiting Gait Function Factors Limiting Gait Function Decreased Activity Tolerance, Decreased Sensation,Decreased Strength,Difficulty Following Directions,Incoordination, Limited Range of Motion,Pain, Poor Balance Comments Gait Comments Pt able to hop on RLE usign fWW bed<>BSC Min A while maintaining NWB LLE. Stair Climbing Assessment Comments Stair Climbing Comments Unable at this time, will need assess stair mgt wide HR prior to DC home. PT-Balance Assessment Sitting Balance and Reactions Static Sitting Balance Ability Normal Dynamic Sitting Balance Ability Normal Standing Balance and Reactions Static Standing Balance Ability Poor Dynamic Standing Balance Ability Poor Device Used FWW M5 PT-IP Objective Assessments Start: 03/28/21 09:23 Freq: NEEDED Status: Active Protocol: Document 03/28/21 12:03 AW (Rec: 03/28/21 13:46 AW [id number]) Orientation Orientation/Cognition Level of Alertness Confusional State Orientation Name,Day of Week,Place, Situation Language Function Ability No Deficits Noted Safety Awareness Decreased Safety Awareness Memory Description Short Term Impaired Gross Range of Motion Lower Extremity ROM Assessment Left Impaired Strength Upper Extremity Strength Assessment Within Functional Limits Lower Extremity Strength Assessment Left Impaired Hip 4-/5 Knee 4-/5 Ankle NT Comments Strength Comments RLE grossly 4-/5 Sensation Assessment Sensation Gross Sensation Right LE Impaired,Left LE Impaired Light Touch Impaired Proprioception (Position) Impaired Comments Sensation Comments Peripheral neuropathy affecting bilateral feet (left more affected than right) Muscle Tone Muscle Tone WNL No Comments Muscle Tone Comments Pt is tremulous in standing, all extremities. M6 PT-IP Treatment Start: 03/28/21 09:23 Freq: NEEDED Status: Active Protocol: Document 03/31/21 09:58 SP (Rec: 03/31/21 11:23 SP [id number]) Physical Therapy Treatment Education Education Provided Precautions,Weight Bearing Status,Safety M7 PT-IP Assessment and Plan Start: 03/28/21 09:23 Freq: NEEDED Status: Active Protocol: Document 03/31/21 09:58 SP (Rec: 03/31/21 11:23 SP [id number]) PT Summary Assessment and Plan Potential Rehabilitation Potential Good Status of Condition at Evaluation Stable Summary Impairments Pain,ROM,Strength,Balance, Coordination,Sensation,Tone, Cognition,Bed Mobility, Transfers,Gait,Activity Tolerance Progress Towards Goals Progressing Toward Goals,Slow Progress due to Medical Issues ,Slow Progress - Other Assessment Summary Pt SBA during bed mob, Min A during mobility using fWW, while maintaining NWB LLE. Recommending SNF rehab to improve strength and mobility independence. Goals Bed Mobility Goal Independent Transfer Goal Standby Assistance,Front Wheeled Walker Gait Goal Contact Guard Assistance,Front Wheel Walker Gait Distance 30 Days to Meet Goals 10 Frequency of Treatment Frequency Of Treatment Once a Day Treatment Plan Physical Therapy Treatment Plan Bed Mobility Training,Transfer Training,Gait Training, Therapeutic Exercise,Balance Retraining,Post Op Education, Discharge Planning,Hot or Cold Pack,Neuromuscular Re-ed Other Recommendations and Next Treatment transfers, gait using FWW Focus Precautions Other Precautions NWB LLE Recommendations To Nursing Amount of Assist Needed 1 Person Assist Discharge Recommendations PT Discharge Recommendations SNF Rehab Transportation Needs at Discharge Wheelchair/Cabulance
[2021-03-31] MEDS: LORazepam 0.5 MG TABLET PO (11:17)
--- NOTE | 2021-03-31 15:14 | CM.DPNOTE ---
DC Note DC to [facility] today; COVID test updated yesterday and Neg. Signed and completed DC orders, med list, Rx and completed and updated PASRR faxed to [facility] through [facility] arranged by [facility] for p/u at 1130. Updated RN and patient w/this information and all agreeable. COVID-19 vaccination card was emailed by patient to [facility] per request from [facility] for admission process. ARMANI
== END 2021-03-31 12:05 | DRG 494 ==
LOC: ED 14:28 → AC 15:47 → ICU 03-28 08:34 → AC 03-28 13:22
PROVIDERS: Nurse Practitioner Family; Admitting Provider Orthopaedic Surgery Foot and Ankle Surgery; Emergency Provider Emergency Medicine; Family Provider Internal Medicine; Referring Provider Emergency Medicine; Visit Provider Orthopaedic Surgery Foot and Ankle Surgery
PROC: 0QSK04Z Reposition Left Fibula with Internal Fixation Device, Open Approach (ICD-10-PCS; principal; 2021-03-27 16:00)
DX: S82.832A Other fracture of upper and lower end of left fibula, initial encounter for closed fracture (principal); W10.9XXA Fall (on) (from) unspecified stairs and steps, initial encounter; Y92.008 Other place in unspecified non-institutional (private) residence as the place of occurrence of the external cause; S86.812A Strain of other muscle(s) and tendon(s) at lower leg level, left leg, initial encounter; F10.10 Alcohol abuse, uncomplicated; G47.33 Obstructive sleep apnea (adult) (pediatric); G62.9 Polyneuropathy, unspecified; K21.9 Gastro-esophageal reflux disease without esophagitis; I10 Essential (primary) hypertension; E66.9 Obesity, unspecified; Z68.30 Body mass index [BMI] 30.0-30.9, adult; Z87.891 Personal history of nicotine dependence; Z20.822 Contact with and (suspected) exposure to COVID-19
CPT/HCPCS: 36415; 64450; 73610; 80048; 80053; 83735; 84100; 85014; 85018; 85025; 85610; 85730; 87635; 93005; 94660; 96374; 97162; 97530; 99284; C9803; J0690; J1170; J2250; J2405; J2704; J3010